=== PATIENT | female | born 1940 | race Caucasian/White ===

== ENCOUNTER 2016-08-18 23:49 | Observation (INO) ==
[2016-08-19] MEDS ORDERED: SODIUM CHLORIDE 0.9% 1,000 ML IV STA (00:25)
[2016-08-19] MEDS ORDERED: ONDANSETRON 4 MG/2 ML VIAL IV STA (00:25)
--- NOTE | 2016-08-19 00:25 | Emergency Department Note ---
Shorty Acuna Hilary, am scribing for, and in the presence of, Walter Jurado MD 00: 22. Rhiannon Acuna Andrew, MD, personally performed the services described in this documentation, ascribed by Nancy Oro in my presence, and it is both accurate and complete . Arrival - Arrival Chief Complaint: Nausea/Vomiting/Diarrhea Stated Complaint: N/V ED Nursing Triage Note: Patient to ED via EMS with c/o N/V that started around 2230. Patient had a small amount of bright red blood noted in her emesis [employer]. Patient has history of GI bleed. Mode of Arrival: Stretcher Limitations: No Limitations Source: Patient, RN Notes Reviewed - History of Present Illness HPI Narrative: Pt is a 76 y/o white female brought into the ED via EMS with c/o N/V that started around 2230. Pt states she started to vomit bright red blood this evening. She confirms abdominal pain and bloody vomiting. Pt states that she has a history of Ulcers and had 2 tumors taken out of her stomach recently (a few months ago) per Dr Machado at [facility]. She says that with those ulcers she had blood in her stool but not bloody vomit. Pt also states that she has been dealing with sinus drainage for several days. No other complaints or problems stated in the ED. Onset (ago): hour(s) Consistency: constant Severity: moderate Severity scale (1-10): 3 Allergies/Adverse Reactions: Allergies Allergy/AdvReac Type Severity Reaction Status Date / Time acetaminophen Allergy Unknown/Unable Verified 08/19/16 00:13 [From Darvocet-N] to obtain amlodipine Allergy Unknown/Unable Verified 08/19/16 00:13 to obtain Ethanol Allergy Unknown/Unable Verified 08/19/16 00:13 to obtain hydrochlorothiazide Allergy Unknown/Unable Verified 08/19/16 00:13 to obtain lisinopril Allergy Unknown/Unable Verified 08/19/16 00:13 to obtain losartan Allergy Unknown/Unable Verified 08/19/16 00:13 to obtain methocarbamol [From Robaxin] Allergy Unknown/Unable Verified 08/19/16 00:13 to obtain NSAIDS (Non-Steroidal Allergy Unknown/Unable Verified 08/19/16 00:13 Anti-Inflamma to obtain propoxyphene Allergy Unknown/Unable Verified 08/19/16 00:13 [From Danny] to obtain Sulfa (Sulfonamide Allergy Unknown/Unable Verified 08/19/16 00:13 Antibiotics) to obtain Tetracycline Allergy Unknown/Unable Verified 08/19/16 00:13 to obtain steriods Allergy Unknown/Unable Uncoded 08/19/16 00:13 to obtain Home Medications: Home Medications Medication Instructions Recorded Confirmed Type Acetaminophen Tab [Tylenol Tab] 325 mg PO Q4H PRN 08/19/16 08/19/16 History Cetirizine Tab [ZyrTEC Tab] 10 mg PO DAILY 08/19/16 08/19/16 History Cholecalciferol (Vitamin D3) 2,000 unit PO DAILY 08/19/16 08/19/16 History [Vitamin D3] Colchicine [Colcrys] 0.6 mg PO BID 08/19/16 08/19/16 History Divalproex Sprinkle [Depakote 125 mg PO TID 08/19/16 08/19/16 History Sprinkle] Docusate Sodium 100 mg PO BID 08/19/16 08/19/16 History Ferrous Sulfate Tab [Feosol 325 mg PO BID 08/19/16 08/19/16 History Original Tab] Fluticasone/Salmeterol 250-50 1 puff INH BID 08/19/16 08/19/16 History [Advair 250-50] Furosemide Tab [Lasix Tab] 40 mg PO DIRECTED 08/19/16 08/19/16 History Guaifen/Dextromethorphan/PE 30 ml PO DIRECTED PRN 08/19/16 08/19/16 History [Robafen Cf Liquid] Hydrocodone/Acetaminophen [[place] 7.5 mg PO Q12HR 08/19/16 08/19/16 History 7.5-325 Tablet] Levothyroxine Tab [Synthroid Tab] 112 mcg PO DAILY 08/19/16 08/19/16 History Mag-Al 30 ml PO DIRECTED PRN 08/19/16 08/19/16 History Magnesium Hydroxide Susp [Milk of 30 ml PO BID 08/19/16 08/19/16 History Magnesia] Melatonin/Pyridoxine HCl (B6) 3 mg PO BEDTIME 08/19/16 08/19/16 History [Melatonin 3 mg Tablet] Mv-Mn/FA/Coq10/Lycopene/Lutein 1 each PO DAILY 08/19/16 08/19/16 History [Theragran-M Premier 50+ Caplet] OLANZapine TAB [ZyPREXA Tab] 5 mg PO DAILY 08/19/16 08/19/16 History [place]-3 Fatty Acids [[place]-3 Chew 1,000 mg PO DAILY 08/19/16 08/19/16 History Tab] Omeprazole [Prilosec] 20 mg PO BID 08/19/16 08/19/16 History Phenazopyridine HCl [Azo Urinary 97.5 mg PO TID PRN 08/19/16 08/19/16 History Pain Relief] Polyethylene Glycol Powder 17 gm PO DIRECTED 08/19/16 08/19/16 History [Miralax] Polyvinyl Alcohol [Liquitears] 1.4 % OP DIRECTED 08/19/16 08/19/16 History Potassium Chloride [Klor-Con 8] 8 meq PO DAILY 08/19/16 08/19/16 History Pravastatin Sodium 10 mg PO DAILY 08/19/16 08/19/16 History Prochlorperazine Tab [Compazine 5 mg PO DIRECTED PRN 08/19/16 08/19/16 History Tab] Pyridoxine HCl (Vitamin B6) 100 mg PO DAILY 08/19/16 08/19/16 History [Vitamin B-6] Temazepam [Restoril] 7.5 mg PO BEDTIME 08/19/16 08/19/16 History Tolterodine LA [Detrol LA] 4 mg PO DAILY 08/19/16 08/19/16 History cloNIDine HCl [Clonidine HCl] 0.1 mg PO DAILY 08/19/16 08/19/16 History diphenhydrAMINE CAP [Benadryl Cap] 25 mg PO Q12H PRN 08/19/16 08/19/16 History hydrALAZINE TAB [Apresoline Tab] 25 mg PO BID 08/19/16 08/19/16 History traZODone [Desyrel] 25 mg PO BEDTIME 08/19/16 08/19/16 History Review of System - Review of System 12 point system: reviewed and no additional remarkable complaints except as stated - Review of System Constitutional: Absent: fever Gastrointestinal: Present: as per HPI, abdominal pain, nausea, vomiting, hematemesis (bright red, just blood). Absent: hematochezia Medical,Surgical,& Family Hx - Medical History Cardio: History of: Hypertension Psychological: History of: Depression Endocrine: History of: Dyslipidemia, Thyroid Disorder Rheumatology: History of;: Gout Respiratory: History of: COPD Gastrointestinal: History of: GERD - Social History Smoking Status: Never smoker Frequency of Alcohol Use: None Type of Drug Use: None Exam Vital Signs: Vital Signs Temperature 98.3 F 08/18/16 23:50 Pulse Rate 74 08/19/16 03:49 Respiratory Rate 16 08/19/16 03:49 Blood Pressure 172/98 08/19/16 03:49 O2 Sat by Pulse Oximetry 95 08/19/16 03:49 - General General appearance: alert, in no apparent distress - Head Head exam: Present: atraumatic, normocephalic - Eye Eye exam: Present: normal appearance, PERRL, EOMI. Absent: other (pale conjuctiva) - ENT ENT exam: Present: normal exam, mucous membranes moist, TM's normal bilaterally. Absent: mucous membranes dry - Neck Neck exam: Present: full ROM, trachea midline. Absent: tenderness - Chest Chest inspection: Present: symmetric chest wall rise. Absent: tenderness - Respiratory Respiratory exam: Present: normal lung sounds bilaterally. Absent: respiratory distress - Cardiovascular Cardiovascular exam: Present: regular rate, normal rhythm, normal heart sounds. Absent: murmur, rubs, gallop - Abdominal Exam Abdominal exam: Present: soft ( ), tenderness (LUQ, LLQ), normal bowel sounds. Absent: distention - Rectal Exam Rectal exam: Present: heme (-) stool (Fecal Cult. ). Absent: black stool (dark green, no evidence of melena) - Extremities Exam Extremities exam: Present: full ROM. Absent: tenderness, pedal edema - Back Exam Back exam: Present: full ROM. Absent: tenderness - Neurological Exam Neurological exam: Present: alert, oriented X3, CN II-XII intact. Absent: motor sensory deficit - Psychiatric Psychiatric exam: Present: normal affect, normal mood - Skin Skin exam: Present: warm, dry, intact, normal color. Absent: rash Course Course Narrative: Labs unremarkable. Patient with concerning story with hematemesis and prior history of PUD. Patient discussed with hospitalist and they plan to admit for serial H&H's. Results - Labs CBC & BMP: 08/19/16 05:12 08/19/16 00:06 Lab Results: I have reviewed the patients labs Labs: Laboratory Tests 08/19/16 08/19/16 00:06 00:06 WBC 10.6 RBC 5.45 Hgb 14.9 Hct 44.2 MCV 81.1 L Plt Count 177 Lymph % (Auto) 15.2 L Neut # (Auto) 7.9 H [place] # (Auto) 0.9 H Sodium 141 Potassium 3.8 Chloride 108 H Carbon Dioxide 25 BUN 23 H Creatinine 1.60 H Glucose 124 H Total Protein 6.6 Disposition Clinical Impression: Nausea and vomiting, Hematemesis Case discussed with: patient Disposition: Still a Patient Condition: Stable
[2016-08-19] MEDS ORDERED: ONDANSETRON 4 MG/2 ML VIAL ONE (00:38)
[2016-08-19 00:47] LABS: Basophils % 0.4 % (0.0-0.8); Eosinophils # 0.1 10*3/uL (0.0-0.87); Eosinophils % 1.2 % (0.00-10.9); Hematocrit 44.2 VOL% (35.7-47.0); Hemoglobin 14.9 GM/DL (12.0-16.0); Immature Granulocytes % 1.3 %; Immature Granulocytes Absolute 0.14 #; Lymphocytes # 1.6 10*3/uL (1.4-4.0); Lymphocytes % 15.2 % (21.3-54.2); Mean Corpuscular HGB Conc 33.7 GM/DL (32-36); Mean Corpuscular Hemoglobin 27 PG (27-34); Mean Corpuscular Volume 81.1 FL (87-102); Mean Platelet Volume 10.4 FL (9.6-12.0); Monocytes # 0.9 10*3/uL (0.11-0.8); Monocytes % 8.1 % (1.7-12.7); Neutrophils # 7.9 10*3/uL (1.4-7.4); Neutrophils % 73.8 % (38.7-73.9); Platelet Count 177 T/CUMM (130-400); Red Blood Count 5.45 MC/CUMM (3.8-5.5); Red Cell Distribution Width 15.5 % (9.3-17.3); White Blood Count 10.6 T/CUMM (4-12)
[2016-08-19 00:58] LABS: Alanine Aminotransferase 31 U/L (13-56); Albumin 3.7 G/DL (3.4-5.0); Alkaline Phosphatase 72 U/L (45-117); Aspartate Amino Transferase 17 U/L (0-37); Bilirubin,Total < 0.39 MG/DL (0.2-1.0); Blood Urea Nitrogen 23 MG/DL (7-18); Calcium 9.6 MG/DL (8.5-10.1); Glucose 124 MG/DL (74-106); Osmolality,Calculated 285.3 MOS/KG (273-304); Potassium 3.8 MMOL/L (3.5-5.1); Sodium 141 MMOL/L (136-145); Total Protein 6.6 G/DL (6.4-8.3)
[2016-08-19] MEDS ORDERED: PANTOPRAZOLE 40 MG VIAL IV STA (03:05)
[2016-08-19] MEDS ORDERED: ONDANSETRON 4 MG/2 ML VIAL IV PRN (03:10)
[2016-08-19] MEDS ORDERED: PANTOPRAZOLE 40 MG VIAL IV ONE (03:14)
[2016-08-19] MEDS ORDERED: hydrALAZINE 20 MG/1 ML VIAL IV STA (03:21)
[2016-08-19] MEDS ORDERED: hydrALAZINE 20 MG/1 ML VIAL ONE (03:28)
[2016-08-19] MEDS ORDERED: SODIUM CHLORIDE 0.9% 1,000 ML IV SCH (03:30)
--- NOTE | 2016-08-19 03:41 | Hospitalist History & Physical ---
Assessment and Plan - Time spent with patient Time spent with patient: Less than 30 minutes (1) GI bleed Status: Acute Assessment and plan: Patient's history is suspicious for GI bleed. No evidence of that at this time, however, given the proximity between onset and arrival in the ED, lab work may have been drawn too soon to show evidence of bleed. Will admit for observation, trend H&H, give IV fluids, hold all NSAIDS and ASA etc, start PPI therapy and antiemetics. Current Visit: Yes (2) Hypertension Status: Acute Assessment and plan: Patient notes an extensive history of hypertension which sometimes requires the uses of multiple antihypertensives to control. Home meds will be reviewed and reconciled once confirmed. Hydralazine PRN. Current Visit: Yes (3) Diabetes mellitus Status: Acute Assessment and plan: Accu-cheks ACHS. Sliding scale insulin per protocol. Current Visit: Yes (4) CORNEL (acute kidney injury) Status: Acute Assessment and plan: Creatinine 1.6 on admission. Unsure what patient's baseline is. Will hydrate with gentle IV fluids. Recheck chemistry panel. Current Visit: Yes History of Present Illness Chief complaint: hematemesis History of present illness: Ms. Phillips is a 76 year old white female [facility] resident with a past medical history significant for hypertension, thyroid carcinoma, dyslipidemia, COPD, GERD, and gout who presents via EMS with complaints of hematemesis which onset at approx 2230 last night. The patient is alert and oriented to person and place and appears to be in no acute distress at the time of the exam. She reports that she has been feeling sick for a few days but attributed it to sinus congestion until she had 2 episodes of hematemesis last night. EMS was called and the patient was given an antiemetic en route to the hospital. She reports that the vomiting has since resolved. On exam, she reports that she does have an extensive GI history including diverticulosis, partial colectomy, GI bleeds and, most recently, removal of intestinal tumors a few months ago. The patient reports that she is normally seen by GI specialists at [facility] but came to [facility] because "this is the hospital that is listed on her record". Apparently, the patient's daughter works/worked her at some point. I am not able to produce any records that confirm the patient has been seen by any [facility] physicians. Patient is resting comfortably in bed, though she is hypertensive. Her FOBT was heme negative. H&H are stable at 14.9 and 44.2. BUN 23, creatinine 1.6, serum glucose 124. She confirms headache, hematemesis, epigastric abdominal pain, sore throat, dizziness, mild edema. She denies chest pain, SOB, bleeding per rectum, syncopal episodes, palpitations. This case has been discussed with both Dr. Jurado, ER physician, and Dr. Ro, admitting physician, and the patient will be admitted for observation and further treatment. She is a full code. Home meds have been reviewed. Allergies Allergy/AdvReac Type Severity Reaction Status Date / Time acetaminophen Allergy Unknown/Unable Verified 08/19/16 00:13 [From Darvocet-N] to obtain amlodipine Allergy Unknown/Unable Verified 08/19/16 00:13 to obtain Ethanol Allergy Unknown/Unable Verified 08/19/16 00:13 to obtain hydrochlorothiazide Allergy Unknown/Unable Verified 08/19/16 00:13 to obtain lisinopril Allergy Unknown/Unable Verified 08/19/16 00:13 to obtain losartan Allergy Unknown/Unable Verified 08/19/16 00:13 to obtain methocarbamol [From Robaxin] Allergy Unknown/Unable Verified 08/19/16 00:13 to obtain NSAIDS (Non-Steroidal Allergy Unknown/Unable Verified 08/19/16 00:13 Anti-Inflamma to obtain propoxyphene Allergy Unknown/Unable Verified 08/19/16 00:13 [From Darvocet-N] to obtain Sulfa (Sulfonamide Allergy Unknown/Unable Verified 08/19/16 00:13 Antibiotics) to obtain Tetracycline Allergy Unknown/Unable Verified 08/19/16 00:13 to obtain steriods Allergy Unknown/Unable Uncoded 08/19/16 00:13 to obtain Medical,Surgical,& Family Hx - Medical History Cardio: History of: Hypertension Psychological: History of: Depression Endocrine: History of: Dyslipidemia, Thyroid Disorder Rheumatology: History of;: Gout Respiratory: History of: COPD Gastrointestinal: History of: GERD - Surgical History HEENT Surgeries: Surgical HX of: Thyroid Surgery Abdominal Surgeries: Surgical HX of: Abdominal Surgery (partial colectomy), Appendectomy, Cholecystectomy, Colonoscopy, EGD - Family History Family History: Reports;: Family Diabetes, Family Heart Disease, Family Hypertension - Social History Smoking Status: Former smoker (patient states she smoked for 15 years between age 34 and 49) Have you smoked in the last 12 months: No Frequency of Alcohol Use: None Type of Drug Use: None Marital Status: Single Lives With:: half-way Functional capacity: uses cane/walker 12 point system: reviewed and no additional remarkable complaints except as stated Exam - Constitutional Vitals: Period Temp Pulse Resp BP Sys/Rudolph Pulse Ox Last 24 Hr 98.3 F-98.3 F 72-93 16-22 155-226/85-130 94-98 Exam: General appearance: normal weight, no acute distress - Head Head exam: Present: normocephalic, atraumatic - Eye Eye exam: Present: EOMI. Absent: conjunctival injection, nystagmus Pupils: Present: DINA, normal accommodation - ENT ENT exam: Present: normal exam, normal external ear exam - Neck Neck exam: Present: normal inspection. Absent: lymphadenopathy, tenderness, thyromegaly - Respiratory Respiratory exam: Present: clear to auscultation bilaterally. Absent: rales, rhonchi, wheezes - Cardiovascular Cardiovascular exam: Present: regular rate and rhythm. Absent: carotid bruit, gallop, rubs - GI/Abdominal GI/Abdominal exam: Present: normal bowel sounds. Absent: ascites, distended, mass - Extremities Exam Extremities exam: Present: normal inspection, normal capillary refill. Absent: edema - Back Exam Back exam: Absent: CVA tenderness (L), CVA tenderness (R) - Neurological Exam Neurological exam: Present: alert, oriented X3, CN II-XII intact, reflexes normal - Psychiatric Psychiatric exam: Present: normal affect, normal mood - Skin Skin exam: Present: normal color, warm, dry Results - Labs CBC & BMP: 08/19/16 00:06 08/19/16 00:06 Lab Results: I have reviewed the past 24 hour labs
[2016-08-19] MEDS ORDERED: GLUCAGON 1 MG VIAL IM PRN (04:10)
[2016-08-19] MEDS ORDERED: DEXTROSE 50% 25 GM/50 ML VIAL IV PRN (04:10)
[2016-08-19 05:59] LABS: Basophils % 0.5 % (0.0-0.8); Eosinophils # 0.1 10*3/uL (0.0-0.87); Hematocrit 42.5 VOL% (35.7-47.0); Hemoglobin 14.1 GM/DL (12.0-16.0); Immature Granulocytes % 0.8 %; Immature Granulocytes Absolute 0.07 #; Lymphocytes # 1.7 10*3/uL (1.4-4.0); Lymphocytes % 20.1 % (21.3-54.2); Mean Corpuscular HGB Conc 33.2 GM/DL (32-36); Mean Corpuscular Hemoglobin 27 PG (27-34); Mean Corpuscular Volume 81.4 FL (87-102); Mean Platelet Volume 10.7 FL (9.6-12.0); Monocytes # 0.8 10*3/uL (0.11-0.8); Monocytes % 9.1 % (1.7-12.7); Neutrophils # 5.7 10*3/uL (1.4-7.4); Neutrophils % 68.5 % (38.7-73.9); Platelet Count 191 T/CUMM (130-400); Red Blood Count 5.22 MC/CUMM (3.8-5.5); Red Cell Distribution Width 15.4 % (9.3-17.3); White Blood Count 8.3 T/CUMM (4-12)
[2016-08-19 06:21] LABS: PT Patient Result 10.3 SECS
[2016-08-19] MEDS ORDERED: PROCHLORPERAZINE 5 MG TABLET PO PRN (06:21)
[2016-08-19] MEDS ORDERED: GUAIFENESIN PO PRN (06:21)
[2016-08-19] MEDS ORDERED: PHENYLEPHRINE PO PRN (06:21)
[2016-08-19] MEDS ORDERED: ACETAMINOPHEN 325 MG TABLET PO PRN (06:21)
[2016-08-19] MEDS ORDERED: DEXTROMETHORPHAN PO PRN (06:21)
[2016-08-19] MEDS ORDERED: diphenhydrAMINE CAP 25 MG CAPSULE PO PRN (06:21)
[2016-08-19 06:49] LABS: Calcium 9.2 MG/DL (8.5-10.1); Osmolality,Calculated 296.4 MOS/KG (273-304); Potassium 4.2 MMOL/L (3.5-5.1)
[2016-08-19] MEDS ORDERED: PHENAZOPYRIDINE 95 MG TABLET PO PRN (07:30)
[2016-08-19] MEDS ORDERED: ALUMINUM/MAGNES/SIMETH MAX STR 30 ML UDCUP PO PRN (07:30)
--- NOTE | 2016-08-19 07:54 | Event Note ---
Patient has been seen and examined. H&P noted. Patient's having no current nausea or vomiting at this time. There is been no evidence of bleeding. H&H has remained stable. We will advance her diet and continue serial H&H's. GI has been consulted, however there is no evidence of bleeding at this time and hopefully we can initiate discharge for the next 24 hours if all remains stable.
[2016-08-19] MEDS ORDERED: hydrALAZINE 25 MG TABLET PO SCH ×2 (09:00)
[2016-08-19] MEDS ORDERED: cloNIDine 0.1 MG TABLET PO SCH (09:00)
[2016-08-19] MEDS ORDERED: NON-FORMULARY MEDICATION (Omeprazole [Prilosec] 20 MG) PO SCH (09:00)
[2016-08-19] MEDS: INSULIN LISPRO 100 UNIT/ML SUBCUT SCH ×4 (09:36→22:33)
[2016-08-19] MEDS: FLUTICASONE/SALMETEROL 250-50 DISKUS 14 DOSE INH SCH ×2 (10:01→22:33)
[2016-08-19] MEDS: POTASSIUM CHLORIDE 8 MEQ CAPSULE PO SCH (10:01)
[2016-08-19] MEDS: PANTOPRAZOLE 40 MG TABLET PO SCH (10:01)
[2016-08-19] MEDS: LEVOTHYROXINE 112 MCG TABLET PO SCH (10:01)
[2016-08-19] MEDS: TOLTERODINE LA 4 MG CAPSULE PO SCH (10:01)
[2016-08-19] MEDS: CHOLECALCIFEROL 1,000 UNIT TABLET PO SCH (10:02)
[2016-08-19] MEDS: OLANZapine 5 MG TABLET PO SCH (10:02)
[2016-08-19] MEDS: DIVALPROEX SPRINKLE 125 MG CAPSULE PO SCH ×3 (10:02→22:32)
[2016-08-19] MEDS: POLYVINYL ALCOHOL 1.4% OPH SOLN 15 ML BOTTLE BOTH EYES SCH (10:02)
[2016-08-19] MEDS: FERROUS SULFATE 325 MG TABLET PO SCH ×2 (10:03→22:32)
[2016-08-19] MEDS: CETIRIZINE 10 MG TABLET PO SCH (10:03)
[2016-08-19] MEDS: MULTIVITAMIN (CENTRUM) TABLET PO SCH (10:03)
[2016-08-19] MEDS: cloNIDine 0.1 MG TABLET PO SCH ×2 (10:03→22:33)
[2016-08-19] MEDS: PRAVASTATIN 20 MG TABLET PO SCH (10:04)
[2016-08-19] MEDS: MAGNESIUM HYDROXIDE SUSP 30 ML UDCUP PO SCH ×3 (10:04→22:34)
[2016-08-19] MEDS: PYRIDOXINE 100 MG TABLET PO SCH (10:04)
[2016-08-19] MEDS: OMEGA 3 ACID ETHYL ESTERS 1 GM CAPSULE PO SCH (10:04)
[2016-08-19] MEDS: DOCUSATE SODIUM 100 MG CAPSULE PO SCH ×2 (10:04→22:32)
[2016-08-19 10:41] LABS: Hematocrit 42.2 VOL% (35.7-47.0); Hemoglobin 14.1 GM/DL (12.0-16.0)
--- NOTE | 2016-08-19 11:32 | Gastrointestinal Consult Note ---
Assessment and Plan (1) GI bleed Status: Acute Assessment and plan: 08/19 acute upper GI bleed which appears stable. History suggests possible Annika-Carey tear. Would continue on liquid diet for now. Plan EGD tomorrow morning to clarify bleeding source and could probably discharge tomorrow if no high bleeding risk lesion found. Continue empiric PPI therapy. Current Visit: Yes History of Present Illness Chief complaint: Hematemesis History of present illness: Ms. Phillips is a 76 year old female who presented to the emergency room with complaint of nausea and vomiting. She had 2 episodes of bright red hematemesis yesterday. Presentation, patient was hemodynamically normal. She had a normal- appearing bowel movement early yesterday with none since. She denies recent melena. She had some mild epigastric discomfort with this. Patient's hemoglobin has remained stable in 14 range. She had EGD within the last month or 2 at [facility] with what sounds like gastric polyps removed there which were benign. We do not have those records or pathology to review but have requested these. Patient denies recent weight loss. She denies taking [id number] nonsteroidal medications. Home Medications Medication Instructions Recorded Confirmed Type Acetaminophen Tab [Tylenol Tab] 325 mg PO Q4H PRN 08/19/16 08/19/16 History Cetirizine Tab [ZyrTEC Tab] 10 mg PO DAILY 08/19/16 08/19/16 History Cholecalciferol (Vitamin D3) 2,000 unit PO DAILY 08/19/16 08/19/16 History [Vitamin D3] Colchicine [Colcrys] 0.6 mg PO BID 08/19/16 08/19/16 History Divalproex Sprinkle [Depakote 125 mg PO TID 08/19/16 08/19/16 History Sprinkle] Docusate Sodium 100 mg PO BID 08/19/16 08/19/16 History Ferrous Sulfate Tab [Feosol 325 mg PO BID 08/19/16 08/19/16 History Original Tab] Fluticasone/Salmeterol 250-50 1 puff INH BID 08/19/16 08/19/16 History [Advair 250-50] Furosemide Tab [Lasix Tab] 40 mg PO DIRECTED 08/19/16 08/19/16 History Guaifen/Dextromethorphan/PE 30 ml PO DIRECTED PRN 08/19/16 08/19/16 History [Robafen Cf Liquid] Hydrocodone/Acetaminophen [[place] 7.5 mg PO Q12HR 08/19/16 08/19/16 History 7.5-325 Tablet] Levothyroxine Tab [Synthroid Tab] 112 mcg PO DAILY 08/19/16 08/19/16 History Mag-Al 30 ml PO DIRECTED PRN 08/19/16 08/19/16 History Magnesium Hydroxide Susp [Milk of 30 ml PO BID 08/19/16 08/19/16 History Magnesia] Melatonin/Pyridoxine HCl (B6) 3 mg PO BEDTIME 08/19/16 08/19/16 History [Melatonin 3 mg Tablet] Mv-Mn/FA/Coq10/Lycopene/Lutein 1 each PO DAILY 08/19/16 08/19/16 History [Theragran-M Premier 50+ Caplet] OLANZapine TAB [ZyPREXA Tab] 5 mg PO DAILY 08/19/16 08/19/16 History [place]-3 Fatty Acids [[place]-3 Chew 1,000 mg PO DAILY 08/19/16 08/19/16 History Tab] Omeprazole [Prilosec] 20 mg PO BID 08/19/16 08/19/16 History Phenazopyridine HCl [Azo Urinary 97.5 mg PO TID PRN 08/19/16 08/19/16 History Pain Relief] Polyethylene Glycol Powder 17 gm PO DIRECTED 08/19/16 08/19/16 History [Miralax] Polyvinyl Alcohol [Liquitears] 1.4 % OP DIRECTED 08/19/16 08/19/16 History Potassium Chloride [Klor-Con 8] 8 meq PO DAILY 08/19/16 08/19/16 History Pravastatin Sodium 10 mg PO DAILY 08/19/16 08/19/16 History Prochlorperazine Tab [Compazine 5 mg PO DIRECTED PRN 08/19/16 08/19/16 History Tab] Pyridoxine HCl (Vitamin B6) 100 mg PO DAILY 08/19/16 08/19/16 History [Vitamin B-6] Temazepam [Restoril] 7.5 mg PO BEDTIME 08/19/16 08/19/16 History Tolterodine LA [Detrol LA] 4 mg PO DAILY 08/19/16 08/19/16 History cloNIDine HCl [Clonidine HCl] 0.1 mg PO DAILY 08/19/16 08/19/16 History diphenhydrAMINE CAP [Benadryl Cap] 25 mg PO Q12H PRN 08/19/16 08/19/16 History hydrALAZINE TAB [Apresoline Tab] 25 mg PO BID 08/19/16 08/19/16 History traZODone [Desyrel] 25 mg PO BEDTIME 08/19/16 08/19/16 History Allergies Allergy/AdvReac Type Severity Reaction Status Date / Time acetaminophen Allergy Unknown/Unable Verified 08/19/16 00:13 [From [employer]] to obtain amlodipine Allergy Unknown/Unable Verified 08/19/16 00:13 to obtain Ethanol Allergy Unknown/Unable Verified 08/19/16 00:13 to obtain hydrochlorothiazide Allergy Unknown/Unable Verified 08/19/16 00:13 to obtain lisinopril Allergy Unknown/Unable Verified 08/19/16 00:13 to obtain losartan Allergy Unknown/Unable Verified 08/19/16 00:13 to obtain methocarbamol [From Robaxin] Allergy Unknown/Unable Verified 08/19/16 00:13 to obtain NSAIDS (Non-Steroidal Allergy Unknown/Unable Verified 08/19/16 00:13 Anti-Inflamma to obtain propoxyphene Allergy Unknown/Unable Verified 08/19/16 00:13 [From [employer]] to obtain Sulfa (Sulfonamide Allergy Unknown/Unable Verified 08/19/16 00:13 Antibiotics) to obtain Tetracycline Allergy Unknown/Unable Verified 08/19/16 00:13 to obtain steriods Allergy Unknown/Unable Uncoded 08/19/16 00:13 to obtain Medical,Surgical,& Family Hx - Medical History Cardio: History of: Hypertension Psychological: History of: Anxiety Disorders, Depression Neurology: History of: Peripheral Neuropathy Endocrine: History of: Dyslipidemia, Thyroid Disorder Rheumatology: History of;: Gout Respiratory: History of: COPD Gastrointestinal: History of: GERD - Surgical History HEENT Surgeries: Surgical HX of: Thyroid Surgery Abdominal Surgeries: Surgical HX of: Abdominal Surgery (partial colectomy), Appendectomy, Cholecystectomy, Colonoscopy, EGD Reproductive Surgeries: Surgical HX of;: Hysterectomy, Tubal Ligation - Family History Family History: Reports;: Family Diabetes, Family Heart Disease, Family Hypertension - Social History Smoking Status: Never smoker Frequency of Alcohol Use: None Type of Drug Use: None - Constitutional Constitutional: Present: weakness. Absent: chills, fever(s), weight loss - EENT Nose, mouth and throat: Absent: dysphagia, epistaxis - Cardiovascular Cardiovascular: Absent: chest pain with activity, orthopnea, PND - Respiratory Respiratory: Absent: hemoptysis, wheezing - Gastrointestinal Gastrointestinal: Present: as per HPI - Genitourinary Genitourinary: Absent: dysuria, flank pain, hematuria Exam - Constitutional Vitals: Period Temp Pulse Resp BP Sys/Rduolph Pulse Ox Last 24 Hr 98.1 F-98.5 F 72-93 16-22 155-226/85-130 94-98 General appearance: no acute distress - Head Head exam: Present: normocephalic, atraumatic - Eye Eye exam: Absent: scleral icterus - Respiratory Respiratory exam: Present: clear to auscultation bilaterally. Absent: wheezes - Cardiovascular Cardiovascular exam: Present: regular rate and rhythm. Absent: gallop, rubs - GI/Abdominal GI/Abdominal exam: Present: normal bowel sounds, soft. Absent: distended, organomegaly, tenderness - Extremities Exam Extremities exam: Absent: calf tenderness, edema - Neurological Exam Neurological exam: Present: alert, oriented X3, CN II-XII intact - Skin Skin exam: Present: warm, dry Results - Labs CBC & BMP: 08/19/16 10:33 08/19/16 05:12 Lab Results: I have reviewed the past 24 hour labs Quality Measures - Stroke Symptom Onset Unknown: No
[2016-08-19] MEDS ORDERED: hydrALAZINE 20 MG/1 ML VIAL IV PRN (12:34)
[2016-08-19 19:46] LABS: Hematocrit 38.8 VOL% (35.7-47.0); Hemoglobin 12.9 GM/DL (12.0-16.0)
[2016-08-19] MEDS ORDERED: MELATONIN 3 MG TABLET PO SCH (21:00)
[2016-08-19] MEDS ORDERED: traZODone 50 MG TABLET PO SCH (21:00)
[2016-08-19] MEDS ORDERED: TEMAZEPAM 7.5 MG CAPSULE PO SCH (21:00)
--- NOTE | 2016-08-20 08:32 | Hospitalist Progress Note ---
Assessment and Plan - Time spent with patient Time spent with patient: Less than 30 minutes (1) GI bleed Status: Acute Assessment and plan: Patient has history of hematemesis consistent with possible Annika-Carey tear. She has been on IV PPI and is scheduled for upper endoscopy by Dr. Botello today. H&H have been stable and hopefully she can be discharged back to [facility] later today. Current Visit: Yes (2) Hypertension Status: Chronic Assessment and plan: Blood pressure elevated yesterday requiring adjustment in her medical regimen. She is currently stable and fairly well-controlled. Current Visit: Yes Qualifiers: Hypertension type: essential hypertension Qualified Code(s): I10 - Essential (primary) hypertension (3) Diabetes mellitus Status: Chronic Assessment and plan: Blood sugars well controlled. Continue current regimen. Current Visit: Yes Qualifiers: Diabetes mellitus type: type 2 Hospitalist: Subjective Interval history: Patient without any further complaints. She has been tolerating her diet. There is been no further nausea vomiting, hematemesis, melena or hematochezia. Exam - Constitutional Vitals: Period Temp Pulse Resp BP Sys/Rudolph Pulse Ox Last 24 Hr 97.5 F-98.5 F 66-104 18-20 112-205/66-124 96-99 General appearance: no acute distress - Head Head exam: Present: normocephalic, atraumatic - Eye Eye exam: Present: EOMI Pupils: Present: DINA - ENT ENT exam: Present: normal exam - Neck Neck exam: Present: normal inspection - Respiratory Respiratory exam: Present: clear to auscultation bilaterally - Cardiovascular Cardiovascular exam: Present: regular rate and rhythm - GI/Abdominal GI/Abdominal exam: Present: normal bowel sounds, soft. Absent: tenderness - Extremities Exam Extremities exam: Absent: calf tenderness, edema - Back Exam Back exam: Present: normal inspection - Neurological Exam Neurological exam: Present: alert, oriented X3, CN II-XII intact. Absent: motor sensory deficit - Psychiatric Psychiatric exam: Present: normal affect, normal mood. Absent: agitated, anxious - Skin Skin exam: Present: warm, dry. Absent: rash Results - Labs CBC & BMP: 08/19/16 19:35 08/19/16 05:12 Lab Results: I have reviewed the past 24 hour labs Quality Measures - Stroke Symptom Onset Unknown: No
[2016-08-20] MEDS: FLUTICASONE/SALMETEROL 250-50 DISKUS 14 DOSE INH SCH (08:47)
[2016-08-20] MEDS: INSULIN LISPRO 100 UNIT/ML SUBCUT SCH ×2 (08:47→13:41)
[2016-08-20] MEDS: CHOLECALCIFEROL 1,000 UNIT TABLET PO SCH (08:48)
[2016-08-20] MEDS: OLANZapine 5 MG TABLET PO SCH (08:48)
[2016-08-20] MEDS: PYRIDOXINE 100 MG TABLET PO SCH (08:48)
[2016-08-20] MEDS: CETIRIZINE 10 MG TABLET PO SCH (08:48)
[2016-08-20] MEDS: LEVOTHYROXINE 112 MCG TABLET PO SCH (08:49)
[2016-08-20] MEDS: PRAVASTATIN 20 MG TABLET PO SCH (08:49)
[2016-08-20] MEDS: POTASSIUM CHLORIDE 8 MEQ CAPSULE PO SCH (08:49)
[2016-08-20] MEDS: PANTOPRAZOLE 40 MG TABLET PO SCH (08:49)
[2016-08-20] MEDS: OMEGA 3 ACID ETHYL ESTERS 1 GM CAPSULE PO SCH (08:49)
[2016-08-20] MEDS: MAGNESIUM HYDROXIDE SUSP 30 ML UDCUP PO SCH (08:49)
[2016-08-20] MEDS: MULTIVITAMIN (CENTRUM) TABLET PO SCH (08:50)
[2016-08-20] MEDS: FERROUS SULFATE 325 MG TABLET PO SCH (08:50)
[2016-08-20] MEDS: TOLTERODINE LA 4 MG CAPSULE PO SCH (08:50)
[2016-08-20] MEDS: DIVALPROEX SPRINKLE 125 MG CAPSULE PO SCH (08:50)
[2016-08-20] MEDS: cloNIDine 0.1 MG TABLET PO SCH ×2 (08:50)
[2016-08-20] MEDS: POLYVINYL ALCOHOL 1.4% OPH SOLN 15 ML BOTTLE BOTH EYES SCH (08:50)
[2016-08-20] MEDS: DOCUSATE SODIUM 100 MG CAPSULE PO SCH (08:50)
[2016-08-20] MEDS ORDERED: FUROSEMIDE 40 MG TABLET PO SCH (09:00)
[2016-08-20] MEDS ORDERED: POLYETHYLENE GLYCOL POWDER 17 GM PACK PO SCH (09:00)
[2016-08-20] MEDS ORDERED: LIDOCAINE 2% 5 ML VIAL ONE (10:03)
[2016-08-20] MEDS ORDERED: PROPOFOL 200 MG/20 ML VIAL IV ONE (10:03)
--- NOTE | 2016-08-20 10:05 | History and Physical Update ---
History and Physical Update - History and Physical H&P was reviewed, the patient examined and there: are no changes in the patients condition since last H&P was completed. - Physical Exam Mental Status: alert and oriented Heart: regular rate and rhythm Lung: clear to auscultation Abdomen: within normal limits Vitals: within normal limits
--- NOTE | 2016-08-20 10:15 | Operative Note ---
Date of procedure: 08/20/16 Pre-op diagnosis: Hematemesis Procedure: Procedure: Esophagogastroduodenoscopy Brief clinical abstract: Patient is a 76-year-old female admitted after episodes of nausea/vomiting with hematemesis. She has had no further bleeding noted here. She has not required transfusion. No melena has been noted. Patient had EGD within the last few weeks at [facility] with reportedly 2 hyperplastic polyps removed there. Indication for procedure: Hematemesis Endoscopic findings:[After informed consent was obtained, the patient was placed in the left lateral decubitus position. The gastroscope was inserted in the upper esophagus under direct vision with no resistance encountered. Esophageal mucosa appeared normal with squamocolumnar junction sharply demarcated above a small hiatal hernia. The endoscope was advanced in the stomach which was carefully examined including retroflexed view of the cardia and fundus. There were 2 small approximately 5 mm hyperplastic appearing polyps in the gastric antrum. Over 1 of these, there were 2 endoscopic clips noted. A couple of small nonbleeding vascular malformations were noted in the proximal stomach. These were not coagulated. The pyloric channel, duodenal bulb, second and third portion of the duodenum appeared normal. The endoscope was withdrawn and patient appeared to tolerate the procedure well. Impression: #1 small hiatal hernia #2 nonbleeding gastric AVMs #3 small gastric antral polyps Recommendations: With no lesions noted to suggest significant further bleeding risk, advance diet. Could probably discharge today from GI standpoint if tolerates. Anesthesia: MAC Surgeon / Physician: Alfredo Botello Estimated blood loss: none Specimens: none sent Condition: stable Disposition: post procedure unit Results - Labs CBC & BMP: 08/19/16 19:35 08/19/16 05:12 Discharge Plan - Discharge Medications No Action Prochlorperazine Tab [Compazine Tab] 5 mg PO DIRECTED PRN PRN Reason: Nausea Cholecalciferol (Vitamin D3) [Vitamin D3] 2,000 unit PO DAILY Omeprazole [Prilosec] 20 mg PO BID Cetirizine Tab [ZyrTEC Tab] 10 mg PO DAILY Temazepam [Restoril] 7.5 mg PO BEDTIME Colchicine [Colcrys] 0.6 mg PO BID hydrALAZINE TAB [Apresoline Tab] 25 mg PO BID OLANZapine TAB [ZyPREXA Tab] 5 mg PO DAILY Hydrocodone/Acetaminophen [Angel[place] 7.5-325 Tablet] 7.5 mg PO Q12HR Mag-Al 30 ml PO DIRECTED PRN PRN Reason: Indigestion Mv-Mn/FA/Coq10/Lycopene/Lutein [Theragran-M Premier 50+ Caplet] 1 each PO DAILY Acetaminophen Tab [Tylenol Tab] 325 mg PO Q4H PRN PRN Reason: Pain Ferrous Sulfate Tab [Feosol Original Tab] 325 mg PO BID traZODone [Desyrel] 25 mg PO BEDTIME Guaifen/Dextromethorphan/PE [Robafen Cf Liquid] 30 ml PO DIRECTED PRN PRN Reason: cough Polyvinyl Alcohol [Liquitears] 1.4 % OP DIRECTED Pravastatin Sodium 10 mg PO DAILY Melatonin/Pyridoxine HCl (B6) [Melatonin 3 mg Tablet] 3 mg PO BEDTIME Docusate Sodium 100 mg PO BID Potassium Chloride [Klor-Con 8] 8 meq PO DAILY Stella-3 Fatty Acids [Stella-3 Chew Tab] 1,000 mg PO DAILY cloNIDine HCl [Clonidine HCl] 0.1 mg PO DAILY Polyethylene Glycol Powder [Miralax] 17 gm PO DIRECTED Levothyroxine Tab [Synthroid Tab] 112 mcg PO DAILY Fluticasone/Salmeterol 250-50 [Advair 250-50] 1 puff INH BID Divalproex Sprinkle [Depakote Sprinkle] 125 mg PO TID Furosemide Tab [Lasix Tab] 40 mg PO DIRECTED diphenhydrAMINE CAP [Benadryl Cap] 25 mg PO Q12H PRN PRN Reason: Itching Magnesium Hydroxide Susp [Milk of Magnesia] 30 ml PO BID Phenazopyridine HCl [Azo Urinary Pain Relief] 97.5 mg PO TID PRN PRN Reason: Urinary Pain Pyridoxine HCl (Vitamin B6) [Vitamin B-6] 100 mg PO DAILY Tolterodine LA [Detrol LA] 4 mg PO DAILY - Follow Up or Referral - Forms/Instructions
--- NOTE | 2016-08-20 10:23 | Anesthesia Post-Op ---
Anesthesia Post OP - Post Ansesthetic Evaluation Patient seen in post op: Yes Resp: within normal limits CV: within normal limits Mental: within normal limits Temp: within normal limits [id number]: within normal limits Nausea and Vomiting: within normal limits Pain: within normal limits
--- NOTE | 2016-08-20 10:25 | Discharge Summary ---
Hospital Course - Hospital Course Hospital Course: 76-year-old white female resident of [facility] who had some nausea with vomiting with red blood approximately 1030 on the night prior to admission. She was evaluated in the emergency room and because of her history is felt that should require further observation. Patient was admitted to the hospitalist service and serial hemoglobin and hematocrit revealed no significant drop. She was noted to be quite hypertensive in her antihypertensive regimen had to be adjusted with good result. There was no evidence of further bleeding however she was seen by gastroenterology. She underwent esophagogastroduodenoscopy which noted a small hiatal hernia, nonbleeding gastric AVMs, small gastric antral polyps. There were no lesions to suggest significant further bleeding risk and her diet was advanced and tolerated and she will be subsequently discharged back to [facility] for further care. - Time spent with patient Time with patient DS: Less than 30 minutes Diagnosis - Discharge Diagnosis (1) GI bleed Status: Acute (2) Hypertension Status: Chronic (3) Diabetes mellitus Status: Chronic Discharge Plan - Discharge Data Disposition: Disch/Xfer to Snf Condition at Discharge: Stable Discharge Diet: advance to your usual diet Activity: resume usual activities as tolerated Hygiene: no restrictions Contact your physician if you experience:: fever over 101, Shortness of breath, Bleeding - Discharge Medications New hydrALAZINE TAB [Apresoline Tab] 50 mg PO TID tablet cloNIDine TAB [Catapres Tab] 0.1 mg PO BID tablet Continue Prochlorperazine Tab [Compazine Tab] 5 mg PO DIRECTED PRN PRN Reason: Nausea Cholecalciferol (Vitamin D3) [Vitamin D3] 2,000 unit PO DAILY Omeprazole [Prilosec] 20 mg PO BID Cetirizine Tab [ZyrTEC Tab] 10 mg PO DAILY Temazepam [Restoril] 7.5 mg PO BEDTIME Colchicine [Colcrys] 0.6 mg PO BID OLANZapine TAB [ZyPREXA Tab] 5 mg PO DAILY Hydrocodone/Acetaminophen [[place] 7.5-325 Tablet] 7.5 mg PO Q12HR Mag-Al 30 ml PO DIRECTED PRN PRN Reason: Indigestion Mv-Mn/FA/Coq10/Lycopene/Lutein [Theragran-M Premier 50+ Caplet] 1 each PO DAILY Acetaminophen Tab [Tylenol Tab] 325 mg PO Q4H PRN PRN Reason: Pain Ferrous Sulfate Tab [Feosol Original Tab] 325 mg PO BID traZODone [Desyrel] 25 mg PO BEDTIME Guaifen/Dextromethorphan/PE [Robafen Cf Liquid] 30 ml PO DIRECTED PRN PRN Reason: cough Polyvinyl Alcohol [Liquitears] 1.4 % OP DIRECTED Pravastatin Sodium 10 mg PO DAILY Melatonin/Pyridoxine HCl (B6) [Melatonin 3 mg Tablet] 3 mg PO BEDTIME Docusate Sodium 100 mg PO BID Potassium Chloride [Klor-Con 8] 8 meq PO DAILY [place]-3 Fatty Acids [[place]-3 Chew Tab] 1,000 mg PO DAILY Polyethylene Glycol Powder [Miralax] 17 gm PO DIRECTED Levothyroxine Tab [Synthroid Tab] 112 mcg PO DAILY Fluticasone/Salmeterol 250-50 [Advair 250-50] 1 puff INH BID Divalproex Sprinkle [Depakote Sprinkle] 125 mg PO TID Furosemide Tab [Lasix Tab] 40 mg PO DIRECTED diphenhydrAMINE CAP [Benadryl Cap] 25 mg PO Q12H PRN PRN Reason: Itching Magnesium Hydroxide Susp [Milk of Magnesia] 30 ml PO BID Phenazopyridine HCl [Azo Urinary Pain Relief] 97.5 mg PO TID PRN PRN Reason: Urinary Pain Pyridoxine HCl (Vitamin B6) [Vitamin B-6] 100 mg PO DAILY Tolterodine LA [Detrol LA] 4 mg PO DAILY Discontinued hydrALAZINE TAB [Apresoline Tab] 25 mg PO BID cloNIDine HCl [Clonidine HCl] 0.1 mg PO DAILY - Follow Up or Referral Follow Up: PCP, clinic [Other] - 3 Days - Forms/Instructions Additional Discharge Instructions: Discharge to [facility] after lunch Exam - Constitutional Vitals: Period Temp Pulse Resp BP Sys/Rudolph Pulse Ox Last 24 Hr 97.3 F-98.5 F 63-104 16-20 112-228/66-124 91-100 General appearance: no acute distress - Head Head exam: Present: normocephalic, atraumatic - Eye Eye exam: Present: EOMI Pupils: Present: DINA - ENT ENT exam: Present: normal exam - Neck Neck exam: Present: normal inspection - Respiratory Respiratory exam: Present: clear to auscultation bilaterally - Cardiovascular Cardiovascular exam: Present: regular rate and rhythm - GI/Abdominal GI/Abdominal exam: Present: normal bowel sounds, soft. Absent: tenderness, rebound - Extremities Exam Extremities exam: Absent: calf tenderness, edema - Back Exam Back exam: Present: normal inspection - Neurological Exam Neurological exam: Present: alert, oriented X3, CN II-XII intact. Absent: motor sensory deficit - Psychiatric Psychiatric exam: Present: normal affect, normal mood. Absent: agitated, anxious - Skin Skin exam: Present: warm, dry. Absent: rash Discharge Results Procedures and tests throughout hospitalization: Pending Orders 08/19/16 03:10 Occult Blood, Stool Routine Labs on day of discharge: Labs from last 24 hours 08/19/16 08/19/16 08/19/16 19:35 11:37 10:33 Hgb 12.9 14.1 Hct 38.8 42.2 POC Glucose 133 H DS: Provider Date of admission: 08/19/16 03:10 Primary care physician: . No PCP Attending physician on admission: Venu Ro MD Consults: 08/19/16 07:13 Consult to Dietitian [CONS] Routine Reason for Dietitian: Dietary Consult 08/19/16 07:47 Consult to Physician [CONS] Routine Comment: hx hemetemasis Consulting Provider: Alfredo Botello Person Notified: Aware Date Notified: 08/20/16 Time Notified: 09:06 Discharging clinician: Marta Berrios Expected date of discharge: 08/20/16
[2016-08-20 13:43] VITALS: BP 162/79
== END 2016-08-20 15:02 ==
LOC: EDBD → EDUNIT# → N.EDINP 23:49 → N.ED 23:49 → SUATTDRO 08-19 03:10 → N.5E 08-19 03:35
PROVIDERS: ADMIT Family Medicine; ATTEND Hospitalist

== ENCOUNTER 2017-08-19 15:39 | Inpatient (IN) ==
[2017-08-19] MEDS ORDERED: SODIUM CHLORIDE 0.9% 500 ML IV STA ×2 (16:51→18:20)
[2017-08-19 17:23] LABS: Basophils # 0.1 10*3/uL (0.0-0.2); Basophils % 0.2 % (0.0-0.8); Eosinophils # 0.2 10*3/uL (0.0-0.87); Eosinophils % 0.6 % (0.00-10.9); Hemoglobin 9.4 GM/DL (12.0-16.0); Immature Granulocytes Absolute 5.67 #; Lymphocytes # 2.3 10*3/uL (1.4-4.0); Lymphocytes % 9.9 % (21.3-54.2); Mean Corpuscular HGB Conc 32.4 GM/DL (32-36); Mean Corpuscular Hemoglobin 27 PG (27-34); Mean Corpuscular Volume 82.9 FL (87-102); Mean Platelet Volume 10.6 FL (9.6-12.0); Monocytes # 2.4 10*3/uL (0.11-0.8); Monocytes % 10.1 % (1.7-12.7); Neutrophils # 13.1 10*3/uL (1.4-7.4); Neutrophils % 55.2 % (38.7-73.9); Platelet Count 393 T/CUMM (130-400); Red Cell Distribution Width 17.2 % (9.3-17.3); White Blood Count 23.6 T/CUMM (4-12)
[2017-08-19] MEDS ORDERED: PIPERACILLIN/TAZOBACTAM 3,375 MG in SODIUM CHLORIDE 0.9% 100 ML IV STA (17:29)
[2017-08-19] MEDS ORDERED: cefTRIAXone 1,000 MG in SODIUM CHLORIDE 0.9% 100 ML IV STA (17:29)
[2017-08-19 17:47] LABS: Apearance,Urine Slightly Hazy (Clear); Bilirubin,Urine Negative (Negative); Blood, Urine Negative (Negative); Glucose,Urine (UA) Negative (Negative); Ketones,Urine Negative (Negative); Nitrite,Urine Positive (Negative); Protein,Urine Negative; RBC,Urine 1 /HPF (0-4); Urine Color Yellow (Yellow); Urine Specific Gravity 1.005 (1.001-1.035); Urine Urobilinogen < 2.0 EU/DL (0.2-1.0); WBC,Urine 126 /HPF (0-6)
[2017-08-19 17:48] LABS: Alanine Aminotransferase 12 U/L (13-56); Albumin 2.1 G/DL (3.4-5.0); Alkaline Phosphatase 57 U/L (45-117); Aspartate Amino Transferase 13 U/L (0-37); Bilirubin,Total < 0.39 MG/DL (0.2-1.0); Blood Urea Nitrogen 49 MG/DL (7-18); Calcium 8.4 MG/DL (8.5-10.1); Glucose 96 MG/DL (74-106); Osmolality,Calculated 280.2 MOS/KG (273-304); Potassium 4.4 MMOL/L (3.5-5.1); Sodium 134 MMOL/L (136-145); Total Protein 6.1 G/DL (6.4-8.3)
[2017-08-19] MEDS ORDERED: DEXTROSE 50% 25 GM/50 ML VIAL IV PRN (19:26)
[2017-08-19] MEDS ORDERED: GLUCAGON 1 MG VIAL IM PRN (19:26)
[2017-08-19 20:24] LABS: Band Neutrophils 1 % (0-10); Lymphocytes 12 % (20-55); Metamyelocytes 2 %; Myelocytes 3 %; Segmented Neutrophils 75 % (50-85); Total Cells Counted 100
[2017-08-19 20:25] LABS: Platelet Estimate Normal; Polychromasia Few
[2017-08-19] MEDS: ENOXAPARIN 30 MG/0.3 ML SYRINGE SUBCUT SCH (22:13)
[2017-08-19] MEDS: INSULIN REGULAR 100 UNIT/ML SUBCUT SCH (22:24)
[2017-08-19] MEDS: SODIUM CHLORIDE 0.9% 1,000 ML IV SCH (22:25)
[2017-08-19] MEDS: NITROFURANTOIN MACRO/MONO 100 MG CAPSULE PO SCH (23:43)
[2017-08-19] MEDS: traZODone 50 MG TABLET PO SCH (23:43)
[2017-08-19] MEDS: DIVALPROEX 250 MG TABLET PO SCH (23:43)
[2017-08-19] MEDS: FAMOTIDINE 20 MG TABLET PO SCH (23:43)
[2017-08-20 05:46] LABS: Basophils # 0.1 10*3/uL (0.0-0.2); Basophils % 0.2 % (0.0-0.8); Eosinophils # 0.1 10*3/uL (0.0-0.87); Eosinophils % 0.6 % (0.00-10.9); Hematocrit 29.1 VOL% (35.7-47.0); Hemoglobin 9.3 GM/DL (12.0-16.0); Immature Granulocytes % 22.5 %; Immature Granulocytes Absolute 4.71 #; Lymphocytes % 9.7 % (21.3-54.2); Mean Corpuscular Hemoglobin 27 PG (27-34); Mean Corpuscular Volume 83.6 FL (87-102); Mean Platelet Volume 10.7 FL (9.6-12.0); Monocytes # 2.1 10*3/uL (0.11-0.8); Monocytes % 10.2 % (1.7-12.7); Neutrophils # 11.9 10*3/uL (1.4-7.4); Neutrophils % 56.8 % (38.7-73.9); Platelet Count 389 T/CUMM (130-400); Red Blood Count 3.48 MC/CUMM (3.8-5.5); Red Cell Distribution Width 17.3 % (9.3-17.3); White Blood Count 20.9 T/CUMM (4-12)
[2017-08-20] MEDS: PIPERACILLIN/TAZOBACTAM 3,375 MG in SODIUM CHLORIDE 0.9% 100 ML IV SCH ×2 (05:49→17:01)
[2017-08-20] MEDS: LEVOTHYROXINE 137 MCG TABLET PO SCH (05:51)
[2017-08-20 06:07] LABS: Albumin 1.8 G/DL (3.4-5.0); Bilirubin,Total 0.4 MG/DL (0.2-1.0); Calcium 8.7 MG/DL (8.5-10.1); Osmolality,Calculated 286.5 MOS/KG (273-304); Total Protein 6.2 G/DL (6.4-8.3)
[2017-08-20 06:14] LABS: Band Neutrophils 9 % (0-10); Eosinophils 4 % (0-10); Hypochromasia 1+; Lymphocytes 7 % (20-55); Ovalocytes Slight; Platelet Estimate Adequate; Segmented Neutrophils 68 % (50-85); Total Cells Counted 100
[2017-08-20] MEDS: INSULIN REGULAR 100 UNIT/ML SUBCUT SCH ×4 (08:20→20:57)
[2017-08-20] MEDS ORDERED: Fluticasone/Vilanterol [Breo Ellipta 100-25 Mcg Inh] INH SCH (09:00)
[2017-08-20] MEDS: POLYETHYLENE GLYCOL POWDER 17 GM PACK PO SCH (09:33)
[2017-08-20] MEDS: FLUTICASONE 50 MCG NASAL SPRAY 16 GM BOTTLE BOTH NARES SCH (09:33)
[2017-08-20] MEDS: TOLTERODINE 2 MG TABLET PO SCH ×2 (09:33→20:54)
[2017-08-20] MEDS: CARVEDILOL 25 MG TABLET PO SCH ×2 (09:33→16:54)
[2017-08-20] MEDS: POLYVINYL ALCOHOL 1.4% OPH SOLN 15 ML BOTTLE BOTH EYES SCH ×2 (09:33→20:58)
[2017-08-20] MEDS: ASPIRIN EC 81 MG TABLET PO SCH (09:33)
[2017-08-20] MEDS: DIVALPROEX 250 MG TABLET PO SCH ×2 (09:33→20:53)
[2017-08-20] MEDS: CETIRIZINE 10 MG TABLET PO SCH (09:34)
[2017-08-20] MEDS: NITROFURANTOIN MACRO/MONO 100 MG CAPSULE PO SCH (09:34)
[2017-08-20] MEDS: OLANZapine 5 MG TABLET PO SCH (09:34)
[2017-08-20] MEDS: PRAVASTATIN 20 MG TABLET PO SCH (09:34)
[2017-08-20] MEDS: FAMOTIDINE 20 MG TABLET PO SCH ×2 (09:34→20:54)
[2017-08-20] MEDS: SODIUM CHLORIDE 0.9% 1,000 ML IV SCH ×2 (15:53)
[2017-08-20] MEDS: traZODone 50 MG TABLET PO SCH (20:57)
[2017-08-20] MEDS: ENOXAPARIN 30 MG/0.3 ML SYRINGE SUBCUT SCH (20:58)
[2017-08-21] MEDS: SODIUM CHLORIDE 0.9% 1,000 ML IV SCH ×3 (05:47→22:32)
[2017-08-21] MEDS: PIPERACILLIN/TAZOBACTAM 3,375 MG in SODIUM CHLORIDE 0.9% 100 ML IV SCH (05:54)
[2017-08-21] MEDS: LEVOTHYROXINE 137 MCG TABLET PO SCH (05:54)
[2017-08-21 07:12] LABS: Basophils % 0.3 % (0.0-0.8); Eosinophils # 0.1 10*3/uL (0.0-0.87); Eosinophils % 0.9 % (0.00-10.9); Hematocrit 29.1 VOL% (35.7-47.0); Hemoglobin 9.1 GM/DL (12.0-16.0); Immature Granulocytes % 17.9 %; Immature Granulocytes Absolute 2.46 #; Lymphocytes # 1.5 10*3/uL (1.4-4.0); Lymphocytes % 10.8 % (21.3-54.2); Mean Corpuscular HGB Conc 31.3 GM/DL (32-36); Mean Corpuscular Hemoglobin 26 PG (27-34); Mean Corpuscular Volume 83.9 FL (87-102); Mean Platelet Volume 10.2 FL (9.6-12.0); Monocytes # 1.3 10*3/uL (0.11-0.8); Monocytes % 9.5 % (1.7-12.7); Neutrophils # 8.3 10*3/uL (1.4-7.4); Neutrophils % 60.6 % (38.7-73.9); Platelet Count 358 T/CUMM (130-400); Red Blood Count 3.47 MC/CUMM (3.8-5.5); Red Cell Distribution Width 17.4 % (9.3-17.3); White Blood Count 13.8 T/CUMM (4-12)
[2017-08-21 07:42] LABS: Calcium 8.3 MG/DL (8.5-10.1); Osmolality,Calculated 291.8 MOS/KG (273-304); Potassium 4.2 MMOL/L (3.5-5.1)
[2017-08-21 08:04] LABS: Band Neutrophils 3 % (0-10); Eosinophils 1 % (0-10); Hypochromasia 2+; Lymphocytes 9 % (20-55); Microcytosis 2+; Myelocytes 1 %; Platelet Estimate Adequate; Segmented Neutrophils 77 % (50-85); Total Cells Counted 100
[2017-08-21] MEDS: INSULIN REGULAR 100 UNIT/ML SUBCUT SCH ×4 (09:25→21:03)
[2017-08-21] MEDS: FLUTICASONE 50 MCG NASAL SPRAY 16 GM BOTTLE BOTH NARES SCH (09:33)
[2017-08-21] MEDS: POLYETHYLENE GLYCOL POWDER 17 GM PACK PO SCH (09:33)
[2017-08-21] MEDS: POLYVINYL ALCOHOL 1.4% OPH SOLN 15 ML BOTTLE BOTH EYES SCH ×2 (09:33→21:03)
[2017-08-21] MEDS: TOLTERODINE 2 MG TABLET PO SCH ×2 (09:33→21:03)
[2017-08-21] MEDS: CETIRIZINE 10 MG TABLET PO SCH (09:34)
[2017-08-21] MEDS: FAMOTIDINE 20 MG TABLET PO SCH ×2 (09:34→21:03)
[2017-08-21] MEDS: PRAVASTATIN 20 MG TABLET PO SCH (09:34)
[2017-08-21] MEDS: ASPIRIN EC 81 MG TABLET PO SCH (09:34)
[2017-08-21] MEDS: DIVALPROEX 250 MG TABLET PO SCH (09:34)
[2017-08-21] MEDS: CARVEDILOL 25 MG TABLET PO SCH ×2 (09:34→18:05)
[2017-08-21] MEDS: OLANZapine 5 MG TABLET PO SCH (09:34)
[2017-08-21] MEDS ORDERED: LACTULOSE 20 GM/30 ML UDCUP PO ONE (13:58)
[2017-08-21] MEDS: MEROPENEM 500 MG in SYRINGE 1 EACH IV SCH (15:22)
[2017-08-21] MEDS: ENOXAPARIN 30 MG/0.3 ML SYRINGE SUBCUT SCH (21:03)
[2017-08-21] MEDS: traZODone 50 MG TABLET PO SCH (21:03)
[2017-08-22] MEDS: MEROPENEM 500 MG in SYRINGE 1 EACH IV SCH ×2 (02:38→15:17)
[2017-08-22] MEDS: LEVOTHYROXINE 137 MCG TABLET PO SCH (06:01)
[2017-08-22 06:42] LABS: Basophils # 0.1 10*3/uL (0.0-0.2); Basophils % 0.7 % (0.0-0.8); Eosinophils # 0.2 10*3/uL (0.0-0.87); Eosinophils % 1.4 % (0.00-10.9); Hematocrit 27.2 VOL% (35.7-47.0); Hemoglobin 8.6 GM/DL (12.0-16.0); Immature Granulocytes % 14.2 %; Immature Granulocytes Absolute 1.87 #; Lymphocytes # 1.6 10*3/uL (1.4-4.0); Lymphocytes % 12.2 % (21.3-54.2); Mean Corpuscular HGB Conc 31.6 GM/DL (32-36); Mean Corpuscular Hemoglobin 27 PG (27-34); Mean Corpuscular Volume 83.7 FL (87-102); Mean Platelet Volume 10.4 FL (9.6-12.0); Monocytes # 1.4 10*3/uL (0.11-0.8); Monocytes % 10.6 % (1.7-12.7); NRBC # 0.02 10*3/uL; Neutrophils % 60.9 % (38.7-73.9); Platelet Count 358 T/CUMM (130-400); Red Blood Count 3.25 MC/CUMM (3.8-5.5); Red Cell Distribution Width 17.5 % (9.3-17.3); White Blood Count 13.2 T/CUMM (4-12)
[2017-08-22 06:56] LABS: Calcium 8.3 MG/DL (8.5-10.1); Osmolality,Calculated 292.6 MOS/KG (273-304); Potassium 4.5 MMOL/L (3.5-5.1)
[2017-08-22 07:05] LABS: Eosinophils 1 % (0-10); Giant Platelets Few; Hypochromasia 1+; Lymphocytes 14 % (20-55); Ovalocytes Slight; Platelet Estimate Adequate; Segmented Neutrophils 76 % (50-85); Total Cells Counted 100
[2017-08-22 07:06] LABS: Microcytosis 1+
[2017-08-22] MEDS: INSULIN REGULAR 100 UNIT/ML SUBCUT SCH ×4 (07:08→21:34)
[2017-08-22] MEDS: FLUTICASONE 50 MCG NASAL SPRAY 16 GM BOTTLE BOTH NARES SCH (09:38)
[2017-08-22] MEDS: POLYVINYL ALCOHOL 1.4% OPH SOLN 15 ML BOTTLE BOTH EYES SCH ×2 (09:39→21:30)
[2017-08-22] MEDS: PRAVASTATIN 20 MG TABLET PO SCH (09:39)
[2017-08-22] MEDS: FAMOTIDINE 20 MG TABLET PO SCH ×2 (09:39→21:30)
[2017-08-22] MEDS: CARVEDILOL 25 MG TABLET PO SCH ×2 (09:39→17:52)
[2017-08-22] MEDS: CETIRIZINE 10 MG TABLET PO SCH (09:39)
[2017-08-22] MEDS: OLANZapine 5 MG TABLET PO SCH (09:39)
[2017-08-22] MEDS: TOLTERODINE 2 MG TABLET PO SCH ×2 (09:39→21:30)
[2017-08-22] MEDS: ASPIRIN EC 81 MG TABLET PO SCH (09:39)
[2017-08-22] MEDS: POLYETHYLENE GLYCOL POWDER 17 GM PACK PO SCH (09:39)
[2017-08-22] MEDS: traZODone 50 MG TABLET PO SCH (21:30)
[2017-08-22] MEDS: ENOXAPARIN 30 MG/0.3 ML SYRINGE SUBCUT SCH (21:35)
[2017-08-23] MEDS: MEROPENEM 500 MG in SYRINGE 1 EACH IV SCH ×2 (02:41→17:04)
[2017-08-23] MEDS: LEVOTHYROXINE 137 MCG TABLET PO SCH (05:49)
[2017-08-23 06:15] LABS: Basophils # 0.1 10*3/uL (0.0-0.2); Basophils % 0.7 % (0.0-0.8); Eosinophils # 0.2 10*3/uL (0.0-0.87); Eosinophils % 1.8 % (0.00-10.9); Hematocrit 28.4 VOL% (35.7-47.0); Hemoglobin 8.9 GM/DL (12.0-16.0); Immature Granulocytes % 11.4 %; Immature Granulocytes Absolute 1.37 #; Lymphocytes # 1.9 10*3/uL (1.4-4.0); Lymphocytes % 15.6 % (21.3-54.2); Mean Corpuscular HGB Conc 31.3 GM/DL (32-36); Mean Corpuscular Hemoglobin 27 PG (27-34); Mean Corpuscular Volume 84.8 FL (87-102); Mean Platelet Volume 10.4 FL (9.6-12.0); Monocytes # 1.3 10*3/uL (0.11-0.8); NRBC # 0.02 10*3/uL; Neutrophils # 7.1 10*3/uL (1.4-7.4); Neutrophils % 59.5 % (38.7-73.9); Platelet Count 344 T/CUMM (130-400); Red Blood Count 3.35 MC/CUMM (3.8-5.5); Red Cell Distribution Width 17.5 % (9.3-17.3)
[2017-08-23 06:30] LABS: Calcium 8.3 MG/DL (8.5-10.1); Osmolality,Calculated 285.8 MOS/KG (273-304); Potassium 4.7 MMOL/L (3.5-5.1)
[2017-08-23 06:56] LABS: Band Neutrophils 6 % (0-10); Eosinophils 2 % (0-10); Lymphocytes 7 % (20-55); Segmented Neutrophils 73 % (50-85); Total Cells Counted 100
[2017-08-23 06:57] LABS: Burr Cells Slight; Giant Platelets Few; Microcytosis Slight; Ovalocytes Slight; Platelet Estimate Adequate
[2017-08-23] MEDS: INSULIN REGULAR 100 UNIT/ML SUBCUT SCH ×4 (07:36→21:34)
[2017-08-23] MEDS: POLYVINYL ALCOHOL 1.4% OPH SOLN 15 ML BOTTLE BOTH EYES SCH ×2 (10:42→21:34)
[2017-08-23] MEDS: POLYETHYLENE GLYCOL POWDER 17 GM PACK PO SCH (10:43)
[2017-08-23] MEDS: FLUTICASONE 50 MCG NASAL SPRAY 16 GM BOTTLE BOTH NARES SCH (10:43)
[2017-08-23] MEDS: TOLTERODINE 2 MG TABLET PO SCH ×2 (10:45→21:33)
[2017-08-23] MEDS: ASPIRIN EC 81 MG TABLET PO SCH (10:45)
[2017-08-23] MEDS: CETIRIZINE 10 MG TABLET PO SCH (10:45)
[2017-08-23] MEDS: FAMOTIDINE 20 MG TABLET PO SCH ×2 (10:45→21:33)
[2017-08-23] MEDS: CARVEDILOL 25 MG TABLET PO SCH ×2 (10:45→17:04)
[2017-08-23] MEDS: PRAVASTATIN 20 MG TABLET PO SCH (10:45)
[2017-08-23] MEDS: OLANZapine 5 MG TABLET PO SCH (10:47)
[2017-08-23] MEDS: SODIUM CHLORIDE 0.9% 1,000 ML IV SCH (12:40)
[2017-08-23] MEDS: traZODone 50 MG TABLET PO SCH (21:33)
[2017-08-23] MEDS: ENOXAPARIN 30 MG/0.3 ML SYRINGE SUBCUT SCH (21:34)
[2017-08-24] MEDS: MEROPENEM 500 MG in SYRINGE 1 EACH IV SCH ×2 (02:37→14:43)
[2017-08-24] MEDS: LEVOTHYROXINE 137 MCG TABLET PO SCH (05:22)
[2017-08-24] MEDS: INSULIN REGULAR 100 UNIT/ML SUBCUT SCH ×4 (08:10→20:41)
[2017-08-24] MEDS: POLYETHYLENE GLYCOL POWDER 17 GM PACK PO SCH (09:09)
[2017-08-24] MEDS: FAMOTIDINE 20 MG TABLET PO SCH ×2 (09:09→20:36)
[2017-08-24] MEDS: TOLTERODINE 2 MG TABLET PO SCH ×2 (09:09→20:36)
[2017-08-24] MEDS: ASPIRIN EC 81 MG TABLET PO SCH (09:09)
[2017-08-24] MEDS: FLUTICASONE 50 MCG NASAL SPRAY 16 GM BOTTLE BOTH NARES SCH (09:10)
[2017-08-24] MEDS: CARVEDILOL 25 MG TABLET PO SCH ×2 (09:10→16:49)
[2017-08-24] MEDS: CETIRIZINE 10 MG TABLET PO SCH (09:10)
[2017-08-24] MEDS: OLANZapine 5 MG TABLET PO SCH (09:10)
[2017-08-24] MEDS: POLYVINYL ALCOHOL 1.4% OPH SOLN 15 ML BOTTLE BOTH EYES SCH ×2 (09:10→20:37)
[2017-08-24] MEDS: PRAVASTATIN 20 MG TABLET PO SCH (09:10)
[2017-08-24] MEDS: traZODone 50 MG TABLET PO SCH (20:36)
[2017-08-24] MEDS: ENOXAPARIN 30 MG/0.3 ML SYRINGE SUBCUT SCH (20:36)
[2017-08-25] MEDS: MEROPENEM 500 MG in SYRINGE 1 EACH IV SCH ×2 (02:36→16:45)
[2017-08-25 04:52] LABS: Basophils # 0.1 10*3/uL (0.0-0.2); Basophils % 0.7 % (0.0-0.8); Eosinophils # 0.2 10*3/uL (0.0-0.87); Eosinophils % 2.3 % (0.00-10.9); Hematocrit 28.6 VOL% (35.7-47.0); Hemoglobin 8.8 GM/DL (12.0-16.0); Immature Granulocytes Absolute 0.41 #; Lymphocytes # 1.9 10*3/uL (1.4-4.0); Lymphocytes % 22.3 % (21.3-54.2); Mean Corpuscular HGB Conc 30.8 GM/DL (32-36); Mean Corpuscular Hemoglobin 27 PG (27-34); Mean Corpuscular Volume 86.7 FL (87-102); Mean Platelet Volume 10.4 FL (9.6-12.0); Monocytes # 1.1 10*3/uL (0.11-0.8); Monocytes % 12.7 % (1.7-12.7); Neutrophils # 4.7 10*3/uL (1.4-7.4); Platelet Count 295 T/CUMM (130-400); Red Cell Distribution Width 17.1 % (9.3-17.3); White Blood Count 8.3 T/CUMM (4-12)
[2017-08-25 05:11] LABS: Calcium 8.9 MG/DL (8.5-10.1); Osmolality,Calculated 279.4 MOS/KG (273-304); Potassium 4.3 MMOL/L (3.5-5.1)
[2017-08-25] MEDS: LEVOTHYROXINE 137 MCG TABLET PO SCH (05:38)
[2017-08-25] MEDS: INSULIN REGULAR 100 UNIT/ML SUBCUT SCH ×4 (08:19→21:21)
[2017-08-25] MEDS: CARVEDILOL 25 MG TABLET PO SCH ×2 (08:59→16:45)
[2017-08-25] MEDS: OLANZapine 5 MG TABLET PO SCH (08:59)
[2017-08-25] MEDS: POLYETHYLENE GLYCOL POWDER 17 GM PACK PO SCH (08:59)
[2017-08-25] MEDS: ASPIRIN EC 81 MG TABLET PO SCH (08:59)
[2017-08-25] MEDS: TOLTERODINE 2 MG TABLET PO SCH ×2 (08:59→21:23)
[2017-08-25] MEDS: PRAVASTATIN 20 MG TABLET PO SCH (08:59)
[2017-08-25] MEDS: POLYVINYL ALCOHOL 1.4% OPH SOLN 15 ML BOTTLE BOTH EYES SCH ×2 (08:59→21:23)
[2017-08-25] MEDS: CETIRIZINE 10 MG TABLET PO SCH (08:59)
[2017-08-25] MEDS: FAMOTIDINE 20 MG TABLET PO SCH ×2 (08:59→21:21)
[2017-08-25] MEDS: FLUTICASONE 50 MCG NASAL SPRAY 16 GM BOTTLE BOTH NARES SCH (09:00)
[2017-08-25] MEDS: ENOXAPARIN 30 MG/0.3 ML SYRINGE SUBCUT SCH (21:21)
[2017-08-25] MEDS: traZODone 50 MG TABLET PO SCH (21:21)
[2017-08-26] MEDS: MEROPENEM 500 MG in SYRINGE 1 EACH IV SCH ×2 (02:55→16:50)
[2017-08-26 05:29] LABS: Basophils # 0.1 10*3/uL (0.0-0.2); Basophils % 0.7 % (0.0-0.8); Eosinophils # 0.2 10*3/uL (0.0-0.87); Eosinophils % 2.3 % (0.00-10.9); Hematocrit 27.9 VOL% (35.7-47.0); Hemoglobin 8.7 GM/DL (12.0-16.0); Immature Granulocytes Absolute 0.15 #; Lymphocytes # 1.7 10*3/uL (1.4-4.0); Lymphocytes % 22.7 % (21.3-54.2); Mean Corpuscular HGB Conc 31.2 GM/DL (32-36); Mean Corpuscular Hemoglobin 27 PG (27-34); Mean Corpuscular Volume 85.6 FL (87-102); Mean Platelet Volume 10.1 FL (9.6-12.0); Monocytes # 1.1 10*3/uL (0.11-0.8); Monocytes % 13.7 % (1.7-12.7); Neutrophils # 4.5 10*3/uL (1.4-7.4); Neutrophils % 58.6 % (38.7-73.9); Platelet Count 272 T/CUMM (130-400); Red Blood Count 3.26 MC/CUMM (3.8-5.5); Red Cell Distribution Width 17.1 % (9.3-17.3); White Blood Count 7.7 T/CUMM (4-12)
[2017-08-26 05:57] LABS: Calcium 8.6 MG/DL (8.5-10.1); Osmolality,Calculated 279.4 MOS/KG (273-304); Potassium 4.4 MMOL/L (3.5-5.1)
[2017-08-26] MEDS: LEVOTHYROXINE 137 MCG TABLET PO SCH (06:03)
[2017-08-26] MEDS: INSULIN REGULAR 100 UNIT/ML SUBCUT SCH ×4 (08:09→21:00)
[2017-08-26] MEDS: FLUTICASONE 50 MCG NASAL SPRAY 16 GM BOTTLE BOTH NARES SCH (09:19)
[2017-08-26] MEDS: POLYETHYLENE GLYCOL POWDER 17 GM PACK PO SCH (09:19)
[2017-08-26] MEDS: TOLTERODINE 2 MG TABLET PO SCH ×2 (09:20→20:57)
[2017-08-26] MEDS: PRAVASTATIN 20 MG TABLET PO SCH (09:20)
[2017-08-26] MEDS: ASPIRIN EC 81 MG TABLET PO SCH (09:20)
[2017-08-26] MEDS: CARVEDILOL 25 MG TABLET PO SCH ×2 (09:20→16:48)
[2017-08-26] MEDS: FAMOTIDINE 20 MG TABLET PO SCH ×2 (09:20→20:57)
[2017-08-26] MEDS: OLANZapine 5 MG TABLET PO SCH (09:20)
[2017-08-26] MEDS: POLYVINYL ALCOHOL 1.4% OPH SOLN 15 ML BOTTLE BOTH EYES SCH ×2 (09:22→20:59)
[2017-08-26] MEDS: CETIRIZINE 10 MG TABLET PO SCH (09:34)
[2017-08-26] MEDS: traZODone 50 MG TABLET PO SCH (20:57)
[2017-08-26] MEDS: ENOXAPARIN 30 MG/0.3 ML SYRINGE SUBCUT SCH (21:00)
[2017-08-27] MEDS: MEROPENEM 500 MG in SYRINGE 1 EACH IV SCH (03:15)
[2017-08-27 05:41] LABS: Basophils # 0.1 10*3/uL (0.0-0.2); Basophils % 1.3 % (0.0-0.8); Eosinophils # 0.2 10*3/uL (0.0-0.87); Eosinophils % 2.9 % (0.00-10.9); Hematocrit 43.2 VOL% (35.7-47.0); Hemoglobin 13.4 GM/DL (12.0-16.0); Immature Granulocytes Absolute 0.16 #; Lymphocytes # 1.8 10*3/uL (1.4-4.0); Mean Corpuscular Hemoglobin 26 PG (27-34); Mean Corpuscular Volume 84.4 FL (87-102); Monocytes # 1.1 10*3/uL (0.11-0.8); Monocytes % 13.7 % (1.7-12.7); Neutrophils # 4.6 10*3/uL (1.4-7.4); Neutrophils % 57.1 % (38.7-73.9); Platelet Count 195 T/CUMM (130-400); Red Blood Count 5.12 MC/CUMM (3.8-5.5); Red Cell Distribution Width 17.6 % (9.3-17.3)
[2017-08-27 05:58] LABS: Calcium 8.7 MG/DL (8.5-10.1); Osmolality,Calculated 278.4 MOS/KG (273-304); Potassium 4.4 MMOL/L (3.5-5.1)
[2017-08-27] MEDS: LEVOTHYROXINE 137 MCG TABLET PO SCH (06:09)
[2017-08-27] MEDS: INSULIN REGULAR 100 UNIT/ML SUBCUT SCH ×2 (08:07→11:05)
[2017-08-27] MEDS: TOLTERODINE 2 MG TABLET PO SCH (09:56)
[2017-08-27] MEDS: FAMOTIDINE 20 MG TABLET PO SCH (09:56)
[2017-08-27] MEDS: FLUTICASONE 50 MCG NASAL SPRAY 16 GM BOTTLE BOTH NARES SCH (09:56)
[2017-08-27] MEDS: OLANZapine 5 MG TABLET PO SCH (09:56)
[2017-08-27] MEDS: PRAVASTATIN 20 MG TABLET PO SCH (09:56)
[2017-08-27] MEDS: CARVEDILOL 25 MG TABLET PO SCH (09:56)
[2017-08-27] MEDS: ASPIRIN EC 81 MG TABLET PO SCH (09:56)
[2017-08-27] MEDS: CETIRIZINE 10 MG TABLET PO SCH (09:56)
[2017-08-27] MEDS: POLYETHYLENE GLYCOL POWDER 17 GM PACK PO SCH (09:58)
[2017-08-27] MEDS: POLYVINYL ALCOHOL 1.4% OPH SOLN 15 ML BOTTLE BOTH EYES SCH (09:58)
[2017-08-27 11:48] VITALS: BP 98/60
== END 2017-08-27 14:50 | DRG 689 ==
LOC: EDBD → EDUNIT# → N.ED 15:39 → SUATTDRO 19:14 → N.EDINP 19:14 → N.3E 20:28
PROVIDERS: ADMIT Internal Medicine; ATTEND Internal Medicine Nephrology

== ENCOUNTER 2018-02-05 14:44 | Observation (INO) ==
[2018-02-05 15:13] LABS: Basophils % 0.5 % (0.0-0.8); Eosinophils # 0.2 10*3/uL (0.0-0.87); Eosinophils % 2.1 % (0.00-10.9); Hematocrit 33.3 VOL% (35.7-47.0); Hemoglobin 10.8 GM/DL (12.0-16.0); Immature Granulocytes % 0.5 %; Immature Granulocytes Absolute 0.04 #; Lymphocytes # 2.1 10*3/uL (1.4-4.0); Lymphocytes % 23.8 % (21.3-54.2); Mean Corpuscular HGB Conc 32.4 GM/DL (32-36); Mean Corpuscular Hemoglobin 27 PG (27-34); Mean Corpuscular Volume 81.8 FL (87-102); Mean Platelet Volume 10.9 FL (9.6-12.0); Monocytes # 0.8 10*3/uL (0.11-0.8); Monocytes % 9.5 % (1.7-12.7); Neutrophils # 5.6 10*3/uL (1.4-7.4); Neutrophils % 63.6 % (38.7-73.9); Platelet Count 236 T/CUMM (130-400); Red Blood Count 4.07 MC/CUMM (3.8-5.5); White Blood Count 8.9 T/CUMM (4-12)
[2018-02-05 15:35] LABS: Alanine Aminotransferase 14 U/L (13-56); Albumin 3.1 G/DL (3.4-5.0); Alkaline Phosphatase 58 U/L (45-117); Aspartate Amino Transferase 13 U/L (0-37); Bilirubin,Total < 0.39 MG/DL (0.2-1.0); Blood Urea Nitrogen 47 MG/DL (7-18); Calcium 8.9 MG/DL (8.5-10.1); Glucose 76 MG/DL (74-106); Osmolality,Calculated 270.8 MOS/KG (273-304); Potassium 4.7 MMOL/L (3.5-5.1); Sodium 130 MMOL/L (136-145); Total Protein 6.8 G/DL (6.4-8.3)
[2018-02-05 16:18] LABS: Apearance,Urine CLEAR (Clear); Bilirubin,Urine Negative (Negative); Blood, Urine Negative (Negative); Glucose,Urine (UA) Negative (Negative); Ketones,Urine Negative (Negative); Nitrite,Urine Negative (Negative); Protein,Urine Negative; Urine Color Straw (Yellow); Urine Specific Gravity 1.003 (1.001-1.035); Urine Urobilinogen < 2.0 EU/DL (0.2-1.0); WBC,Urine <1 /HPF (0-6)
[2018-02-05 20:22] LABS: Lactic Acid 0.9 MMOL/L (0.4-2.0)
[2018-02-05 21:52] LABS: Hematocrit 31.1 VOL% (35.7-47.0); Hemoglobin 10.3 GM/DL (12.0-16.0)
[2018-02-05] MEDS: SODIUM CHLORIDE 0.9% 1,000 ML IV SCH (22:33)
[2018-02-05] MEDS: ACETAMINOPHEN 325 MG TABLET PO PRN (23:15)
[2018-02-06 04:30] LABS: Basophils % 0.5 % (0.0-0.8); Eosinophils # 0.2 10*3/uL (0.0-0.87); Eosinophils % 1.8 % (0.00-10.9); Hematocrit 31.8 VOL% (35.7-47.0); Hemoglobin 10.2 GM/DL (12.0-16.0); Immature Granulocytes % 0.4 %; Immature Granulocytes Absolute 0.03 #; Lymphocytes # 1.4 10*3/uL (1.4-4.0); Mean Corpuscular HGB Conc 32.1 GM/DL (32-36); Mean Corpuscular Hemoglobin 26 PG (27-34); Mean Corpuscular Volume 81.1 FL (87-102); Mean Platelet Volume 10.8 FL (9.6-12.0); Monocytes # 0.8 10*3/uL (0.11-0.8); Monocytes % 9.1 % (1.7-12.7); Neutrophils # 6.1 10*3/uL (1.4-7.4); Neutrophils % 72.2 % (38.7-73.9); Platelet Count 226 T/CUMM (130-400); Red Blood Count 3.92 MC/CUMM (3.8-5.5); Red Cell Distribution Width 16.1 % (9.3-17.3); White Blood Count 8.5 T/CUMM (4-12)
[2018-02-06 04:32] LABS: Hemoglobin 10.2 GM/DL (12.0-16.0)
[2018-02-06 04:56] LABS: Albumin 2.9 G/DL (3.4-5.0); Bilirubin,Total 0.6 MG/DL (0.2-1.0); Calcium 8.7 MG/DL (8.5-10.1); Osmolality,Calculated 285.7 MOS/KG (273-304); Potassium 4.3 MMOL/L (3.5-5.1); Thyroid Stimulating Hormone 0.827 uIU/ml (0.358-3.74); Total Protein 6.1 G/DL (6.4-8.3)
[2018-02-06] MEDS: ONDANSETRON 4 MG/2 ML VIAL IV PRN ×3 (07:27→21:02)
[2018-02-06] MEDS: PANTOPRAZOLE 40 MG TABLET PO SCH (08:19)
[2018-02-06] MEDS: SODIUM CHLORIDE 0.9% 1,000 ML IV SCH ×2 (10:17→22:22)
[2018-02-06] MEDS: ACETAMINOPHEN 325 MG TABLET PO PRN (10:23)
[2018-02-06 11:24] LABS: Hematocrit 30.9 VOL% (35.7-47.0)
[2018-02-06] MEDS ORDERED: BISACODYL 10 MG SUPP RECTAL ONE (17:08)
[2018-02-06] MEDS: POLYETHYLENE GLYCOL POWDER 17 GM PACK PO SCH (20:59)
[2018-02-07] MEDS ORDERED: hydrALAZINE 20 MG/1 ML VIAL IV ONE (04:29)
[2018-02-07 06:10] LABS: Basophils % 0.7 % (0.0-0.8); Eosinophils # 0.2 10*3/uL (0.0-0.87); Eosinophils % 3.1 % (0.00-10.9); Hematocrit 33.2 VOL% (35.7-47.0); Hemoglobin 10.2 GM/DL (12.0-16.0); Immature Granulocytes % 0.3 %; Immature Granulocytes Absolute 0.02 #; Lymphocytes # 1.6 10*3/uL (1.4-4.0); Lymphocytes % 26.3 % (21.3-54.2); Mean Corpuscular HGB Conc 30.7 GM/DL (32-36); Mean Corpuscular Hemoglobin 26 PG (27-34); Mean Corpuscular Volume 84.5 FL (87-102); Mean Platelet Volume 11.3 FL (9.6-12.0); Monocytes # 0.6 10*3/uL (0.11-0.8); Monocytes % 10.3 % (1.7-12.7); Neutrophils # 3.5 10*3/uL (1.4-7.4); Neutrophils % 59.3 % (38.7-73.9); Platelet Count 220 T/CUMM (130-400); Red Blood Count 3.93 MC/CUMM (3.8-5.5); Red Cell Distribution Width 16.3 % (9.3-17.3); White Blood Count 5.9 T/CUMM (4-12)
[2018-02-07 06:46] LABS: Alanine Aminotransferase 11 U/L (13-56); Albumin 2.8 G/DL (3.4-5.0); Alkaline Phosphatase 55 U/L (45-117); Aspartate Amino Transferase 7 U/L (0-37); Bilirubin,Total < 0.39 MG/DL (0.2-1.0); Blood Urea Nitrogen 25 MG/DL (7-18); Calcium 8.8 MG/DL (8.5-10.1); Glucose 94 MG/DL (74-106); Osmolality,Calculated 293.6 MOS/KG (273-304); Potassium 4.1 MMOL/L (3.5-5.1); Sodium 146 MMOL/L (136-145)
[2018-02-07] MEDS: POLYETHYLENE GLYCOL POWDER 17 GM PACK PO SCH (09:40)
[2018-02-07] MEDS: PANTOPRAZOLE 40 MG TABLET PO SCH (09:40)
[2018-02-07] MEDS ORDERED: CARVEDILOL 25 MG TABLET PO SCH (13:00)
[2018-02-07 13:06] VITALS: BP 126/59
[2018-02-07] MEDS ORDERED: PNEUMOCOCCAL VACCINE (23 VALENT) 0.5 ML VIAL IM ONE (15:43)
== END 2018-02-07 15:59 ==
LOC: EDUNIT# → EDBD → N.ED 14:44 → N.4E 14:44
PROVIDERS: ADMIT Internal Medicine; ATTEND Internal Medicine

== ENCOUNTER 2018-08-02 02:26 | Observation (INO) ==
[2018-08-02] MEDS ORDERED: FUROSEMIDE 100 MG/10 ML VIAL IV STA (03:09)
[2018-08-02 04:06] LABS: Basophils % 0.5 % (0.0-0.8); Eosinophils # 0.1 10*3/uL (0.0-0.87); Eosinophils % 1.4 % (0.00-10.9); Hematocrit 36.6 VOL% (35.7-47.0); Hemoglobin 11.6 GM/DL (12.0-16.0); Immature Granulocytes % 0.6 %; Immature Granulocytes Absolute 0.04 #; Lymphocytes # 1.6 10*3/uL (1.4-4.0); Mean Corpuscular HGB Conc 31.7 GM/DL (32-36); Mean Corpuscular Volume 82.2 FL (87-102); Mean Platelet Volume 11.1 FL (9.6-12.0); Neutrophils % 61.5 % (38.7-73.9); Platelet Count 101 T/CUMM (130-400); Red Blood Count 4.45 MC/CUMM (3.8-5.5); Red Cell Distribution Width 15.6 % (9.3-17.3); White Blood Count 6.4 T/CUMM (4-12)
[2018-08-02 04:18] LABS: INR 0.9; PT Patient Result 10.1 SECS
[2018-08-02] MEDS ORDERED: hydrALAZINE 20 MG/1 ML VIAL IV STA ×2 (04:24→05:46)
[2018-08-02 04:30] LABS: Platelet Estimate Decreased
[2018-08-02 04:42] LABS: Alanine Aminotransferase 13 U/L (13-56); Albumin 3.6 G/DL (3.4-5.0); Alkaline Phosphatase 60 U/L (45-117); Aspartate Amino Transferase 12 U/L (0-37); Bilirubin,Total < 0.39 MG/DL (0.2-1.0); Blood Urea Nitrogen 20 MG/DL (7-18); Calcium 10.1 MG/DL (8.5-10.1); Glucose 92 MG/DL (74-106); Osmolality,Calculated 290.7 MOS/KG (273-304); Total Protein 7.1 G/DL (6.4-8.3)
[2018-08-02] MEDS ORDERED: LABETALOL 20 MG/4 ML SYRINGE IV STA (05:08)
[2018-08-02] MEDS ORDERED: ONDANSETRON 4 MG/2 ML VIAL IV ONE (05:20)
[2018-08-02] MEDS ORDERED: ONDANSETRON 4 MG/2 ML VIAL ONE (05:21)
[2018-08-02 05:39] LABS: ABG HCO3 26.2 MMOL/L (20-26); ABG Oxygen Saturation 98.9 % (95-100); ABG PCO2 26.8 MM HG (35-48); ABG PH 7.547 (7.35-7.45); ABG TCO2 20.1 MMOL/L (23-27); Allen Test Positive
[2018-08-02] MEDS ORDERED: NITROGLYCERIN 2% OINT 1 INCH/GM PACK TOP STA (05:46)
[2018-08-02] MEDS ORDERED: ACETAMINOPHEN 325 MG TABLET PO PRN ×2 (06:01→06:34)
[2018-08-02] MEDS ORDERED: DOCUSATE SODIUM 100 MG CAPSULE PO PRN (06:01)
[2018-08-02] MEDS ORDERED: NICOTINE 21 MG/24 HR PATCH TRANSDERM PRN (06:01)
[2018-08-02] MEDS ORDERED: traZODone 50 MG TABLET PO PRN (06:01)
[2018-08-02] MEDS ORDERED: hydrALAZINE 20 MG/1 ML VIAL IV PRN (06:33)
[2018-08-02] MEDS ORDERED: MAGNESIUM HYDROXIDE SUSP 30 ML UDCUP PO PRN (06:34)
[2018-08-02] MEDS ORDERED: ALUMINUM/MAGNES/SIMETH MAX STR 30 ML UDCUP PO PRN (06:34)
[2018-08-02] MEDS ORDERED: FLUTICASONE FUROATE VILANTEROL INH SCH (09:00)
[2018-08-02] MEDS: FUROSEMIDE 40 MG/4 ML VIAL IV SCH ×2 (10:12→23:27)
[2018-08-02] MEDS: FLUTICASONE 50 MCG NASAL SPRAY 16 GM BOTTLE BOTH NARES SCH (10:12)
[2018-08-02] MEDS: POLYETHYLENE GLYCOL POWDER 17 GM PACK PO SCH ×2 (10:14→23:28)
[2018-08-02] MEDS: ASPIRIN EC 81 MG TABLET PO SCH (10:14)
[2018-08-02] MEDS: CETIRIZINE 10 MG TABLET PO SCH (10:14)
[2018-08-02] MEDS: FAMOTIDINE 20 MG TABLET PO SCH ×2 (10:14→23:28)
[2018-08-02] MEDS: OLANZapine 5 MG TABLET PO SCH (10:14)
[2018-08-02] MEDS: hydrALAZINE 25 MG TABLET PO SCH ×4 (10:14→23:28)
[2018-08-02] MEDS: ENOXAPARIN 30 MG/0.3 ML SYRINGE SUBCUT SCH (10:15)
[2018-08-02] MEDS: CARVEDILOL 25 MG TABLET PO SCH ×2 (10:15→23:28)
[2018-08-02] MEDS: LEVOTHYROXINE 137 MCG TABLET PO SCH (10:15)
[2018-08-02] MEDS: DIVALPROEX 250 MG TABLET PO SCH ×2 (10:15→23:27)
[2018-08-02] MEDS: FERROUS SULFATE 325 MG TABLET PO SCH (10:15)
[2018-08-02] MEDS: PANTOPRAZOLE 40 MG TABLET PO SCH (10:15)
[2018-08-02] MEDS: POLYVINYL ALCOHOL 1.4% OPH SOLN 15 ML BOTTLE BOTH EYES SCH ×2 (10:16→23:28)
[2018-08-02] MEDS: SIMVASTATIN 10 MG TABLET PO SCH (10:29)
[2018-08-02] MEDS: ONDANSETRON 4 MG/2 ML VIAL IV PRN (10:50)
[2018-08-02] MEDS ORDERED: traZODone 50 MG TABLET PO SCH (21:00)
[2018-08-03] MEDS: LEVOTHYROXINE 137 MCG TABLET PO SCH (06:03)
[2018-08-03 06:13] LABS: Basophils # 0.1 10*3/uL (0.0-0.2); Basophils % 0.8 % (0.0-0.8); Eosinophils % 0.3 % (0.00-10.9); Hematocrit 40.7 VOL% (35.7-47.0); Hemoglobin 12.6 GM/DL (12.0-16.0); Immature Granulocytes % 0.8 %; Immature Granulocytes Absolute 0.06 #; Lymphocytes # 1.7 10*3/uL (1.4-4.0); Lymphocytes % 23.2 % (21.3-54.2); Mean Corpuscular Volume 83.2 FL (87-102); Mean Platelet Volume 10.5 FL (9.6-12.0); Neutrophils % 60.9 % (38.7-73.9); Platelet Count 231 T/CUMM (130-400); Red Blood Count 4.89 MC/CUMM (3.8-5.5); White Blood Count 7.5 T/CUMM (4-12)
[2018-08-03 06:31] LABS: Calcium 9.9 MG/DL (8.5-10.1)
[2018-08-03] MEDS: FUROSEMIDE 40 MG/4 ML VIAL IV SCH (06:45)
[2018-08-03] MEDS: hydrALAZINE 25 MG TABLET PO SCH ×2 (08:29→13:47)
[2018-08-03] MEDS: CARVEDILOL 25 MG TABLET PO SCH (08:30)
[2018-08-03] MEDS ORDERED: amLODIPine 5 MG TABLET PO SCH (09:00)
[2018-08-03] MEDS: FLUTICASONE 50 MCG NASAL SPRAY 16 GM BOTTLE BOTH NARES SCH (09:20)
[2018-08-03] MEDS: DIVALPROEX 250 MG TABLET PO SCH (09:22)
[2018-08-03] MEDS: ASPIRIN EC 81 MG TABLET PO SCH (09:22)
[2018-08-03] MEDS: SIMVASTATIN 10 MG TABLET PO SCH (09:22)
[2018-08-03] MEDS: OLANZapine 5 MG TABLET PO SCH (09:22)
[2018-08-03] MEDS: FERROUS SULFATE 325 MG TABLET PO SCH (09:22)
[2018-08-03] MEDS: CETIRIZINE 10 MG TABLET PO SCH (09:22)
[2018-08-03] MEDS: FAMOTIDINE 20 MG TABLET PO SCH (09:22)
[2018-08-03] MEDS: POLYETHYLENE GLYCOL POWDER 17 GM PACK PO SCH (09:22)
[2018-08-03] MEDS: ENOXAPARIN 30 MG/0.3 ML SYRINGE SUBCUT SCH (09:22)
[2018-08-03] MEDS: PANTOPRAZOLE 40 MG TABLET PO SCH (09:22)
[2018-08-03] MEDS: POLYVINYL ALCOHOL 1.4% OPH SOLN 15 ML BOTTLE BOTH EYES SCH (09:23)
[2018-08-03] MEDS: ONDANSETRON 4 MG/2 ML VIAL IV PRN (09:32)
[2018-08-03 12:07] VITALS: BP 181/94
== END 2018-08-03 15:06 ==
LOC: EDBD → EDUNIT# → N.EDINP 02:26 → N.ED 02:26 → N.TELEN 06:21
PROVIDERS: ADMIT Family Medicine; ATTEND Family Medicine

== ENCOUNTER 2018-12-17 15:46 | Observation (INO) ==
[2018-12-17] MEDS ORDERED: PHENAZOPYRIDINE 95 MG TABLET PO STA (16:13)
[2018-12-17] MEDS ORDERED: ORPHENADRINE 60 MG/2 ML VIAL IV STA (16:13)
[2018-12-17] MEDS ORDERED: ONDANSETRON 4 MG/2 ML VIAL IV STA (16:13)
[2018-12-17 16:32] LABS: Basophils % 0.6 % (0.0-0.8); Eosinophils % 0.6 % (0.00-10.9); Hematocrit 35.5 VOL% (35.7-47.0); Immature Granulocytes % 0.6 %; Immature Granulocytes Absolute 0.04 #; Lymphocytes # 1.6 10*3/uL (1.4-4.0); Lymphocytes % 25.5 % (21.3-54.2); Mean Corpuscular Volume 87.7 FL (87-102); Mean Platelet Volume 10.7 FL (9.6-12.0); Neutrophils % 61.7 % (38.7-73.9); Platelet Count 221 T/CUMM (130-400); Red Blood Count 4.05 MC/CUMM (3.8-5.5); Red Cell Distribution Width 14.9 % (9.3-17.3); White Blood Count 6.2 T/CUMM (4-12)
[2018-12-17 16:54] LABS: Alanine Aminotransferase 10 U/L (13-56); Albumin 3.2 G/DL (3.4-5.0); Alkaline Phosphatase 59 U/L (45-117); Aspartate Amino Transferase 8 U/L (0-37); Bilirubin,Total < 0.39 MG/DL (0.2-1.0); Blood Urea Nitrogen 20 MG/DL (7-18); Calcium 8.7 MG/DL (8.5-10.1); Estimated Glom Filtration Rate 23 ML/MIN; Glucose 88 MG/DL (74-106); Osmolality,Calculated 282.3 MOS/KG (273-304); Total Protein 6.6 G/DL (6.4-8.3)
[2018-12-17 17:22] LABS: Apearance,Urine CLEAR (Clear); Bilirubin,Urine Negative (Negative); Blood, Urine Negative (Negative); Glucose,Urine (UA) Negative (Negative); Ketones,Urine Negative (Negative); Mucus,Urine Occasional /LPF (Occasional); Nitrite,Urine Negative (Negative); Protein,Urine Negative; RBC,Urine <1 /HPF (0-4); Urine Color Colorless (Yellow); Urine Specific Gravity 1.003 (1.001-1.035); Urine Urobilinogen < 2.0 EU/DL (0.2-1.0); WBC,Urine <1 /HPF (0-6)
[2018-12-17] MEDS ORDERED: ONDANSETRON 4 MG/2 ML VIAL IV PRN (18:19)
[2018-12-17] MEDS ORDERED: cloNIDine 0.1 MG TABLET PO PRN (18:30)
[2018-12-17] MEDS: SODIUM CHLORIDE 0.9% 1,000 ML IV SCH (20:57)
[2018-12-17] MEDS ORDERED: TOLTERODINE 2 MG TABLET PO SCH (21:00)
[2018-12-17] MEDS: METHEN/SOD PHOS/METH BLUE/HYOS TABLET PO SCH (21:00)
[2018-12-17] MEDS ORDERED: ENOXAPARIN 30 MG/0.3 ML SYRINGE SUBCUT SCH (21:00)
[2018-12-17] MEDS: DIVALPROEX 250 MG TABLET PO SCH (21:01)
[2018-12-17] MEDS: carvediloL 25 MG TABLET PO SCH (21:01)
[2018-12-17] MEDS ORDERED: INFLUENZA VIRUS VACCINE 0.5 ML SYRINGE IM ONE (23:05)
[2018-12-18] MEDS: SODIUM CHLORIDE 0.9% 1,000 ML IV SCH (05:56)
[2018-12-18 06:04] LABS: Basophils % 0.7 % (0.0-0.8); Eosinophils # 0.1 10*3/uL (0.0-0.87); Eosinophils % 1.9 % (0.00-10.9); Hematocrit 32.8 VOL% (35.7-47.0); Hemoglobin 10.1 GM/DL (12.0-16.0); Immature Granulocytes % 0.5 %; Immature Granulocytes Absolute 0.02 #; Lymphocytes # 1.7 10*3/uL (1.4-4.0); Lymphocytes % 39.5 % (21.3-54.2); Mean Corpuscular HGB Conc 30.8 GM/DL (32-36); Mean Corpuscular Volume 88.4 FL (87-102); Monocytes % 13.5 % (1.7-12.7); Neutrophils % 43.9 % (38.7-73.9); Platelet Count 193 T/CUMM (130-400); Red Blood Count 3.71 MC/CUMM (3.8-5.5); Red Cell Distribution Width 14.9 % (9.3-17.3); White Blood Count 4.3 T/CUMM (4-12)
[2018-12-18] MEDS ORDERED: LEVOTHYROXINE 125 MCG TABLET PO SCH (06:30)
[2018-12-18 06:31] LABS: Calcium 8.3 MG/DL (8.5-10.1); Osmolality,Calculated 287.8 MOS/KG (273-304)
[2018-12-18 07:50] VITALS: BP 159/87
[2018-12-18] MEDS: DIVALPROEX 250 MG TABLET PO SCH (08:38)
[2018-12-18] MEDS: carvediloL 25 MG TABLET PO SCH (08:38)
[2018-12-18] MEDS: METHEN/SOD PHOS/METH BLUE/HYOS TABLET PO SCH (08:38)
[2018-12-18] MEDS ORDERED: NON-FORMULARY MEDICATION (Fluticasone Furoate-Vilanterol [Breo Ellipta] 1 PUFF) INH SCH (09:00)
[2018-12-18] MEDS ORDERED: PANTOPRAZOLE 40 MG TABLET PO SCH (09:00)
[2018-12-18] MEDS ORDERED: ASPIRIN EC 81 MG TABLET PO SCH (09:00)
[2018-12-18] MEDS ORDERED: OLANZapine 5 MG TABLET PO SCH (09:00)
== END 2018-12-18 11:48 ==
LOC: EDUNIT# → EDBD → N.EDINP 15:46 → N.ED 15:46 → N.EDINP 19:25 → N.5E 19:40
PROVIDERS: ADMIT Emergency Medicine; ATTEND Emergency Medicine

== ENCOUNTER 2020-08-08 14:21 | Observation (INO) ==
[2020-08-08 15:08] LABS: Basophils % 0.6 % (0.0-0.8); Eosinophils # 0.1 10*3/uL (0.0-0.87); Eosinophils % 1.3 % (0.00-10.9); Hematocrit 32.4 VOL% (35.7-47.0); Hemoglobin 9.8 GM/DL (12.0-16.0); Immature Granulocytes % 1.3 %; Immature Granulocytes Absolute 0.08 #; Lymphocytes # 1.1 10*3/uL (1.4-4.0); Lymphocytes % 17.2 % (21.3-54.2); Mean Corpuscular HGB Conc 30.2 GM/DL (32-36); Mean Corpuscular Volume 90.5 FL (87-102); Mean Platelet Volume 10.7 FL (9.6-12.0); Monocytes % 16.6 % (1.7-12.7); Platelet Count 211 T/CUMM (130-400); Red Blood Count 3.58 MC/CUMM (3.8-5.5); Red Cell Distribution Width 16.7 % (9.3-17.3); White Blood Count 6.3 T/CUMM (4-12)
[2020-08-08 15:28] LABS: Lactic Acid 0.9 MMOL/L (0.4-2.0)
[2020-08-08 15:29] LABS: Alanine Aminotransferase < 9 U/L (13-56); Alkaline Phosphatase 58 U/L (45-117); Aspartate Amino Transferase 7 U/L (0-37); Bilirubin,Total < 0.39 MG/DL (0.2-1.0); Blood Urea Nitrogen 30 MG/DL (7-18); Calcium 8.1 MG/DL (8.5-10.1); Carbon Dioxide 26 MMOL/L (21-32); Estimated Glom Filtration Rate 25 ML/MIN; Glucose 85 MG/DL (74-106); Potassium 3.8 MMOL/L (3.5-5.1); Sodium 143 MMOL/L (136-145); Total Protein 6.5 G/DL (6.4-8.2)
[2020-08-08 16:54] LABS: Bacteria,Urine Few /HPF (Few); Bilirubin,Urine Negative (Negative); Blood, Urine Moderate mg/dL (Negative); Glucose,Urine (UA) Negative (Negative); Ketones,Urine Negative (Negative); Nitrite,Urine Negative (Negative); Protein,Urine Negative; RBC,Urine 65 /HPF (0-4); Urine Appearance CLEAR (Clear); Urine Color Straw (Yellow); Urine Specific Gravity 1.004 (1.001-1.035); Urine Urobilinogen < 2.0 EU/DL (0.2-1.0)
[2020-08-08] MEDS ORDERED: DEXTROSE 50% 25 GM/50 ML VIAL IV PRN (18:05)
[2020-08-08] MEDS ORDERED: ONDANSETRON 4 MG/2 ML VIAL IV PRN (18:05)
[2020-08-08] MEDS ORDERED: GLUCAGON 1 MG VIAL IM PRN (18:05)
[2020-08-08] MEDS ORDERED: ACETAMINOPHEN 325 MG TABLET PO PRN (18:05)
[2020-08-08] MEDS ORDERED: LABETALOL 20 MG/4 ML SYRINGE IV PRN (18:11)
[2020-08-08] MEDS ORDERED: DEXTROMETHORPHAN PO PRN (18:14)
[2020-08-08] MEDS ORDERED: CHLORPHENIRAMINE PO PRN (18:14)
[2020-08-08] MEDS ORDERED: POLYETHYLENE GLYCOL POWDER 17 GM PACK PO PRN (18:14)
[2020-08-08] MEDS ORDERED: cloNIDine 0.1 MG TABLET PO PRN (18:14)
[2020-08-08] MEDS ORDERED: [UNRECOGNIZED DRUG - OTHER] PO PRN (18:14)
[2020-08-08 18:30] LABS: Risk Ratio 4.06
[2020-08-08] MEDS ORDERED: cefTRIAXone 1,000 MG in SODIUM CHLORIDE 0.9% 100 ML IV SCH (18:30)
[2020-08-08] MEDS ORDERED: AZITHROMYCIN INJ 500 MG in SODIUM CHLORIDE 0.9% 250 ML IV SCH (18:30)
[2020-08-08] MEDS ORDERED: ALBUTEROL 2.5 MG/3 ML NEB RESP TX PRN (18:51)
[2020-08-08] MEDS ORDERED: ALUMINUM/MAGNES/SIMETH MAX STR 30 ML UDCUP PO PRN (18:53)
[2020-08-08] MEDS ORDERED: TOLTERODINE 2 MG TABLET PO SCH (21:00)
[2020-08-08] MEDS ORDERED: DOCUSATE SODIUM 100 MG CAPSULE PO SCH (21:00)
[2020-08-08] MEDS ORDERED: traZODone 50 MG TABLET PO SCH (21:00)
[2020-08-08] MEDS ORDERED: MELATONIN 3 MG TABLET PO SCH (21:00)
[2020-08-08 21:27] LABS: Eosinophils 2 % (0-10); Lymphocytes 20 % (20-55); Platelet Estimate Normal; Segmented Neutrophils 65 % (50-85); Total Cells Counted 100
[2020-08-08 22:10] LABS: Barbiturates Screen,Urine Negative (Negative); Benzodiazepines Screen,Urine Negative (Negative); Cannabinoid Screen,Urine Negative (Negative); Opiate Screen,Urine Negative (Negative); Phencyclidine Screen,Urine Negative (Negative)
[2020-08-08] MEDS: DIVALPROEX 250 MG TABLET PO SCH (23:54)
[2020-08-08] MEDS: carvediloL 25 MG TABLET PO SCH (23:54)
[2020-08-08] MEDS: FAMOTIDINE 20 MG TABLET PO SCH (23:55)
[2020-08-08] MEDS: APIXABAN 2.5 MG TABLET PO SCH (23:55)
[2020-08-08] MEDS: GABAPENTIN 300 MG CAPSULE PO SCH (23:55)
[2020-08-08] MEDS: SYSTANE BALANCE 0.6% BOTH EYES SCH (23:58)
[2020-08-09 00:43] LABS: Basophils % 0.4 % (0.0-0.8); Eosinophils # 0.1 10*3/uL (0.0-0.87); Eosinophils % 1.4 % (0.00-10.9); Hematocrit 31.5 VOL% (35.7-47.0); Hemoglobin 9.9 GM/DL (12.0-16.0); Immature Granulocytes % 0.8 %; Immature Granulocytes Absolute 0.04 #; Lymphocytes % 19.7 % (21.3-54.2); Mean Corpuscular HGB Conc 31.4 GM/DL (32-36); Mean Corpuscular Volume 88.5 FL (87-102); Mean Platelet Volume 9.9 FL (9.6-12.0); Monocytes % 17.3 % (1.7-12.7); Neutrophils % 60.4 % (38.7-73.9); Platelet Count 189 T/CUMM (130-400); Red Blood Count 3.56 MC/CUMM (3.8-5.5); Red Cell Distribution Width 16.7 % (9.3-17.3); White Blood Count 4.9 T/CUMM (4-12)
[2020-08-09 00:58] LABS: Alanine Aminotransferase < 9 U/L (13-56); Albumin 2.9 G/DL (3.4-5.0); Alkaline Phosphatase 60 U/L (45-117); Aspartate Amino Transferase 6 U/L (0-37); Bilirubin,Total < 0.39 MG/DL (0.2-1.0); Blood Urea Nitrogen 29 MG/DL (7-18); Calcium 8.6 MG/DL (8.5-10.1); Carbon Dioxide 27 MMOL/L (21-32); Estimated Glom Filtration Rate 25 ML/MIN; Glucose 92 MG/DL (74-106); Osmolality,Calculated 295.6 MOS/KG (273-304); Potassium 4.1 MMOL/L (3.5-5.1); Sodium 146 MMOL/L (136-145); Total Protein 6.2 G/DL (6.4-8.2)
[2020-08-09] MEDS ORDERED: LEVOTHYROXINE 125 MCG TABLET PO SCH (06:00)
[2020-08-09] MEDS ORDERED: LORATADINE 10 MG TABLET PO SCH (09:00)
[2020-08-09] MEDS ORDERED: OLANZapine 2.5 MG TABLET PO SCH (09:00)
[2020-08-09] MEDS ORDERED: ASPIRIN 325 MG TABLET PO SCH (09:00)
[2020-08-09] MEDS ORDERED: MONTELUKAST 10 MG TABLET PO SCH (09:00)
[2020-08-09] MEDS ORDERED: FERROUS SULFATE 325 MG TABLET PO SCH (09:00)
[2020-08-09] MEDS ORDERED: FLUTICASONE 50 MCG NASAL SPRAY 16 GM BOTTLE BOTH NARES SCH (09:00)
[2020-08-09] MEDS ORDERED: ASPIRIN EC 81 MG TABLET PO SCH (09:00)
[2020-08-09] MEDS ORDERED: BREO ELLIPTA INH SCH (09:00)
[2020-08-09] MEDS ORDERED: ISOSORBIDE MONONITRATE 30 MG TABLET PO SCH (09:00)
[2020-08-09] MEDS ORDERED: FUROSEMIDE 40 MG TABLET PO SCH (09:00)
[2020-08-09] MEDS: DIVALPROEX 250 MG TABLET PO SCH (10:22)
[2020-08-09] MEDS: APIXABAN 2.5 MG TABLET PO SCH (10:23)
[2020-08-09] MEDS: FAMOTIDINE 20 MG TABLET PO SCH (10:25)
[2020-08-09] MEDS: GABAPENTIN 300 MG CAPSULE PO SCH (10:25)
[2020-08-09] MEDS: carvediloL 25 MG TABLET PO SCH (10:25)
[2020-08-09] MEDS: SYSTANE BALANCE 0.6% BOTH EYES SCH (10:46)
[2020-08-09 11:51] VITALS: BP 104/48
[2020-08-09] MEDS ORDERED: SIMVASTATIN 10 MG TABLET PO SCH (21:00)
== END 2020-08-09 14:51 ==
LOC: EDUNIT# → EDBD → N.EDINP 14:21 → N.ED 14:21 → SUATTDRO 18:05 → N.EDINP 19:59 → N.TELES 20:13
PROVIDERS: ADMIT Internal Medicine; ATTEND Internal Medicine Geriatric Medicine

== ENCOUNTER 2020-11-15 12:00 | Observation (INO) ==
[2020-11-15 14:13] LABS: Basophils % 0.8 % (0.0-0.8); Eosinophils # 0.1 10*3/uL (0.0-0.87); Eosinophils % 2.5 % (0.00-10.9); Hemoglobin 9.5 GM/DL (12.0-16.0); Immature Granulocytes % 0.6 %; Immature Granulocytes Absolute 0.03 #; Lymphocytes # 1.4 10*3/uL (1.4-4.0); Lymphocytes % 28.7 % (21.3-54.2); Mean Corpuscular HGB Conc 30.6 GM/DL (32-36); Mean Corpuscular Volume 84.9 FL (87-102); Mean Platelet Volume 10.6 FL (9.6-12.0); Monocytes % 11.8 % (1.7-12.7); Neutrophils % 55.6 % (38.7-73.9); Platelet Count 196 T/CUMM (130-400); Red Blood Count 3.65 MC/CUMM (3.8-5.5); White Blood Count 4.8 T/CUMM (4-12)
[2020-11-15 14:22] LABS: Bacteria,Urine Occasional /HPF (Few); Bilirubin,Urine Negative (Negative); Blood, Urine Negative (Negative); Glucose,Urine (UA) Negative (Negative); Ketones,Urine Negative (Negative); Mucus,Urine Occasional /LPF (Occasional); Nitrite,Urine Negative (Negative); Protein,Urine Negative; RBC,Urine 1 /HPF (0-4); Urine Appearance CLEAR (Clear); Urine Color Straw (Yellow); Urine Specific Gravity 1.006 (1.001-1.035); Urine Urobilinogen < 2.0 EU/DL (0.2-1.0)
[2020-11-15 14:24] LABS: PT Patient Result 11.4 SECS (10.5-12.0)
[2020-11-15 14:31] LABS: Alanine Aminotransferase < 6 U/L (13-56); Alkaline Phosphatase 46 U/L (45-117); Aspartate Amino Transferase 8 U/L (0-37); Bilirubin,Total < 0.39 MG/DL (0.20-1.00); Blood Urea Nitrogen 30 MG/DL (7-18); Calcium 8.5 MG/DL (8.5-10.1); Carbon Dioxide 29 MMOL/L (21-32); Estimated Glom Filtration Rate 21 ML/MIN; Glucose 103 MG/DL (74-106); Osmolality,Calculated 280.7 MOS/KG (273-304); Potassium 3.9 MMOL/L (3.5-5.1); Sodium 138 MMOL/L (136-145); Total Protein 6.4 G/DL (6.4-8.2)
[2020-11-15 14:36] LABS: Barbiturates Screen,Urine Negative (Negative); Benzodiazepines Screen,Urine Negative (Negative); Cannabinoid Screen,Urine Negative (Negative); Opiate Screen,Urine Negative (Negative); Phencyclidine Screen,Urine Negative (Negative)
[2020-11-15] MEDS ORDERED: ONDANSETRON 4 MG/2 ML VIAL IV PRN (16:30)
[2020-11-15] MEDS ORDERED: GLUCAGON 1 MG VIAL IM PRN (16:30)
[2020-11-15] MEDS ORDERED: DEXTROSE 50% 25 GM/50 ML VIAL IV PRN (16:30)
[2020-11-15] MEDS ORDERED: ENOXAPARIN 40 MG/0.4 ML SYRINGE SUBCUT SCH (16:30)
[2020-11-15] MEDS ORDERED: ACETAMINOPHEN 325 MG TABLET PO PRN (16:30)
[2020-11-15] MEDS ORDERED: LABETALOL 20 MG/4 ML SYRINGE IV PRN (16:34)
[2020-11-15] MEDS ORDERED: ENOXAPARIN 40 MG/0.4 ML SYRINGE ONE (16:47)
[2020-11-15] MEDS ORDERED: CHLORPHENIRAMINE DEXTROMETHORP PO PRN (16:48)
[2020-11-15] MEDS ORDERED: POLYETHYLENE GLYCOL POWDER 17 GM PACK PO PRN (16:48)
[2020-11-15] MEDS ORDERED: ALUMINUM/MAGNES/SIMETH MAX STR 30 ML UDCUP PO PRN (16:48)
[2020-11-15 17:49] LABS: Risk Ratio 5.47; VLDL Cholesterol 33.4 MG/DL
[2020-11-15] MEDS ORDERED: ALBUTEROL 2.5 MG/3 ML NEB RESP TX PRN (19:00)
[2020-11-15 19:50] LABS: Barbiturates Screen,Urine Negative (Negative); Benzodiazepines Screen,Urine Negative (Negative); Cannabinoid Screen,Urine Negative (Negative); Opiate Screen,Urine Negative (Negative); Phencyclidine Screen,Urine Negative (Negative)
[2020-11-15] MEDS ORDERED: TOLTERODINE 2 MG TABLET PO SCH (21:00)
[2020-11-15] MEDS ORDERED: MELATONIN 3 MG TABLET PO SCH (21:00)
[2020-11-15] MEDS ORDERED: traZODone 50 MG TABLET PO SCH (21:00)
[2020-11-15] MEDS ORDERED: DOCUSATE SODIUM 100 MG CAPSULE PO SCH (21:00)
[2020-11-15] MEDS: DIVALPROEX 250 MG TABLET PO SCH (21:11)
[2020-11-15] MEDS: cloNIDine 0.1 MG TABLET PO SCH (21:11)
[2020-11-15] MEDS: GABAPENTIN 300 MG CAPSULE PO SCH (21:13)
[2020-11-15] MEDS: carvediloL 25 MG TABLET PO SCH (21:14)
[2020-11-15] MEDS: APIXABAN 2.5 MG TABLET PO SCH (21:14)
[2020-11-15] MEDS: FAMOTIDINE 20 MG TABLET PO SCH (21:15)
[2020-11-15] MEDS: CARBOXYMETHYLCELLULOSE 1% OPH SOLN BOTH EYES SCH (21:40)
[2020-11-16 04:57] LABS: Eosinophils # 0.1 10*3/uL (0.0-0.87); Eosinophils % 2.9 % (0.00-10.9); Hematocrit 30.5 VOL% (35.7-47.0); Hemoglobin 9.4 GM/DL (12.0-16.0); Immature Granulocytes % 0.7 %; Immature Granulocytes Absolute 0.03 #; Lymphocytes # 1.4 10*3/uL (1.4-4.0); Mean Corpuscular HGB Conc 30.8 GM/DL (32-36); Mean Corpuscular Volume 85.2 FL (87-102); Mean Platelet Volume 10.9 FL (9.6-12.0); Monocytes % 11.2 % (1.7-12.7); Neutrophils % 50.2 % (38.7-73.9); Platelet Count 185 T/CUMM (130-400); Red Blood Count 3.58 MC/CUMM (3.8-5.5); Red Cell Distribution Width 16.9 % (9.3-17.3); White Blood Count 4.2 T/CUMM (4-12)
[2020-11-16 05:26] LABS: Calcium 8.5 MG/DL (8.5-10.1); Osmolality,Calculated 284.4 MOS/KG (273-304); Potassium 3.8 MMOL/L (3.5-5.1)
[2020-11-16] MEDS ORDERED: LEVOTHYROXINE 125 MCG TABLET PO SCH (06:30)
[2020-11-16] MEDS ORDERED: methylPREDNISolone ACETATE 40 MG/1 ML VIAL MISC INJ ONE (07:01)
[2020-11-16] MEDS ORDERED: ASPIRIN EC 81 MG TABLET PO SCH (09:00)
[2020-11-16] MEDS ORDERED: FLUTICASONE 50 MCG NASAL SPRAY 16 GM BOTTLE BOTH NARES SCH (09:00)
[2020-11-16] MEDS ORDERED: MONTELUKAST 10 MG TABLET PO SCH (09:00)
[2020-11-16] MEDS ORDERED: ROSUVASTATIN 20 MG TABLET PO SCH (09:00)
[2020-11-16] MEDS ORDERED: FUROSEMIDE 40 MG TABLET PO SCH (09:00)
[2020-11-16] MEDS ORDERED: FERROUS SULFATE 325 MG TABLET PO SCH (09:00)
[2020-11-16] MEDS ORDERED: ISOSORBIDE MONONITRATE 30 MG TABLET PO SCH (09:00)
[2020-11-16] MEDS ORDERED: LORATADINE 10 MG TABLET PO SCH (09:00)
[2020-11-16] MEDS ORDERED: PANTOPRAZOLE 40 MG TABLET PO SCH (09:00)
[2020-11-16] MEDS ORDERED: OLANZapine 5 MG TABLET PO SCH (09:00)
[2020-11-16] MEDS: carvediloL 25 MG TABLET PO SCH (09:53)
[2020-11-16] MEDS: GABAPENTIN 300 MG CAPSULE PO SCH ×2 (09:53→15:37)
[2020-11-16] MEDS: DIVALPROEX 250 MG TABLET PO SCH (09:53)
[2020-11-16] MEDS: FAMOTIDINE 20 MG TABLET PO SCH (09:54)
[2020-11-16] MEDS: APIXABAN 2.5 MG TABLET PO SCH (09:54)
[2020-11-16] MEDS: cloNIDine 0.1 MG TABLET PO SCH (09:54)
[2020-11-16] MEDS: CARBOXYMETHYLCELLULOSE 1% OPH SOLN BOTH EYES SCH (09:55)
[2020-11-16 16:02] VITALS: BP 122/67
== END 2020-11-16 17:50 ==
LOC: EDBD → EDUNIT# → N.EDINP 12:00 → N.ED 12:00 → N.4E 17:01
PROVIDERS: ADMIT Internal Medicine; ATTEND Internal Medicine

== ENCOUNTER 2020-12-07 12:58 | Inpatient (IN) ==
[2020-12-07] MEDS ORDERED: SODIUM CHLORIDE 0.9% 500 ML IV STA (13:40)
[2020-12-07 14:41] LABS: Basophils % 0.3 % (0.0-0.8); Eosinophils % 0.1 % (0.00-10.9); Hematocrit 31.3 VOL% (35.7-47.0); Hemoglobin 9.7 GM/DL (12.0-16.0); Immature Granulocytes % 2.3 %; Mean Corpuscular Volume 81.9 FL (87-102); Mean Platelet Volume 10.1 FL (9.6-12.0); Monocytes % 13.4 % (1.7-12.7); Neutrophils % 75.9 % (38.7-73.9); Platelet Count 320 T/CUMM (130-400); Red Blood Count 3.82 MC/CUMM (3.8-5.5); Red Cell Distribution Width 16.9 % (9.3-17.3); White Blood Count 12.9 T/CUMM (4-12)
[2020-12-07 14:59] LABS: Alanine Aminotransferase 10 U/L (13-56); Albumin 2.7 G/DL (3.4-5.0); Alkaline Phosphatase 43 U/L (45-117); Aspartate Amino Transferase 11 U/L (0-37); Bilirubin,Total < 0.39 MG/DL (0.20-1.00); Blood Urea Nitrogen 54 MG/DL (7-18); Calcium 9.7 MG/DL (8.5-10.1); Carbon Dioxide 28 MMOL/L (21-32); Estimated Glom Filtration Rate 19 ML/MIN; Glucose 107 MG/DL (74-106); Osmolality,Calculated 287.8 MOS/KG (273-304); Potassium 3.7 MMOL/L (3.5-5.1); Sodium 137 MMOL/L (136-145); Total Protein 7.4 G/DL (6.4-8.2)
[2020-12-07] MEDS ORDERED: GLUCAGON 1 MG VIAL IM PRN (16:00)
[2020-12-07] MEDS ORDERED: ONDANSETRON 4 MG/2 ML VIAL IV PRN (16:00)
[2020-12-07] MEDS ORDERED: DEXTROSE 50% 25 GM/50 ML VIAL IV PRN (16:00)
[2020-12-07] MEDS ORDERED: PIPERACILLIN/TAZOBACTAM 3,375 MG in SODIUM CHLORIDE 0.9% 100 ML IV STA (16:03)
[2020-12-07] MEDS ORDERED: POLYETHYLENE GLYCOL POWDER 17 GM PACK PO PRN (16:07)
[2020-12-07] MEDS ORDERED: PIPERACILLIN/TAZOBACTAM 3,375 MG VIAL IV ONE (16:08)
[2020-12-07] MEDS ORDERED: BISACODYL 5 MG TABLET PO STA (16:09)
[2020-12-07] MEDS ORDERED: SODIUM CHLORIDE 0.9% 100 ML IV ONE (16:10)
[2020-12-07 16:29] LABS: Bacteria,Urine Many /HPF (Few); Bilirubin,Urine Negative (Negative); Blood, Urine Negative (Negative); Glucose,Urine (UA) Negative (Negative); Ketones,Urine Negative (Negative); Nitrite,Urine Positive (Negative); Protein,Urine Negative; RBC,Urine 4 /HPF (0-4); Urine Appearance CLEAR (Clear); Urine Color Yellow (Yellow); Urine Specific Gravity 1.009 (1.001-1.035); Urine Urobilinogen < 2.0 EU/DL (0.2-1.0)
[2020-12-07] MEDS: PANTOPRAZOLE 40 MG TABLET PO SCH (18:16)
[2020-12-07] MEDS: ISOSORBIDE MONONITRATE 30 MG TABLET PO SCH (18:16)
[2020-12-07] MEDS: SODIUM CHLORIDE 0.45% 1,000 ML IV SCH (18:16)
[2020-12-07] MEDS: ALBUTEROL/IPRATROPIUM 3 ML NEB RESP TX SCH (19:45)
[2020-12-07] MEDS ORDERED: MELATONIN 3 MG TABLET PO SCH (21:00)
[2020-12-07] MEDS: carvediloL 25 MG TABLET PO SCH (21:07)
[2020-12-07] MEDS: DIVALPROEX 250 MG TABLET PO SCH (21:07)
[2020-12-07] MEDS: APIXABAN 2.5 MG TABLET PO SCH (21:07)
[2020-12-07] MEDS: GABAPENTIN 300 MG CAPSULE PO SCH (21:08)
[2020-12-07] MEDS: PROPYLENE GLYCOL 0.6% BOTH EYES SCH (21:57)
[2020-12-07] MEDS: PIPERACILLIN/TAZOBACTAM 3,375 MG in SODIUM CHLORIDE 0.9% 100 ML IV SCH (23:49)
[2020-12-08] MEDS: ALBUTEROL/IPRATROPIUM 3 ML NEB RESP TX SCH ×2 (01:04→07:10)
[2020-12-08 05:18] LABS: Basophils % 0.5 % (0.0-0.8); Eosinophils % 0.5 % (0.00-10.9); Hematocrit 24.2 VOL% (35.7-47.0); Immature Granulocytes % 1.9 %; Immature Granulocytes Absolute 0.16 #; Lymphocytes # 1.5 10*3/uL (1.4-4.0); Lymphocytes % 17.5 % (21.3-54.2); Mean Corpuscular HGB Conc 31.4 GM/DL (32-36); Mean Corpuscular Volume 83.2 FL (87-102); Mean Platelet Volume 10.6 FL (9.6-12.0); Monocytes % 18.7 % (1.7-12.7); Neutrophils % 60.9 % (38.7-73.9); Platelet Count 270 T/CUMM (130-400); Red Cell Distribution Width 16.6 % (9.3-17.3)
[2020-12-08 05:31] LABS: Hemoglobin 7.6 GM/DL (12.0-16.0); Red Blood Count 2.91 MC/CUMM (3.8-5.5); White Blood Count 8.3 T/CUMM (4-12)
[2020-12-08 05:39] LABS: Calcium 8.8 MG/DL (8.5-10.1); Osmolality,Calculated 291.4 MOS/KG (273-304); Potassium 3.4 MMOL/L (3.5-5.1)
[2020-12-08 05:41] LABS: Hypochromasia 1+; Lymphocytes 16 % (20-55); Microcytosis 1+; Ovalocytes Slight; Platelet Estimate Adequate; Segmented Neutrophils 68 % (50-85); Total Cells Counted 100
[2020-12-08] MEDS: SODIUM CHLORIDE 0.45% 1,000 ML IV SCH ×2 (06:09→09:00)
[2020-12-08] MEDS ORDERED: LEVOTHYROXINE 125 MCG TABLET PO SCH (07:00)
[2020-12-08] MEDS: POTASSIUM CHLORIDE 20 MEQ TABLET PO PRN ×3 (08:59→12:20)
[2020-12-08] MEDS: ISOSORBIDE MONONITRATE 30 MG TABLET PO SCH (08:59)
[2020-12-08] MEDS: GABAPENTIN 300 MG CAPSULE PO SCH (08:59)
[2020-12-08] MEDS: DIVALPROEX 250 MG TABLET PO SCH (08:59)
[2020-12-08] MEDS: carvediloL 25 MG TABLET PO SCH (08:59)
[2020-12-08] MEDS: PANTOPRAZOLE 40 MG TABLET PO SCH (09:00)
[2020-12-08] MEDS: APIXABAN 2.5 MG TABLET PO SCH (09:00)
[2020-12-08] MEDS ORDERED: OLANZapine 2.5 MG TABLET PO SCH (09:00)
[2020-12-08] MEDS ORDERED: ROSUVASTATIN 20 MG TABLET PO SCH (09:00)
[2020-12-08 10:12] LABS: Hematocrit 25.9 VOL% (35.7-47.0)
[2020-12-08 10:13] LABS: Basophils % 0.4 % (0.0-0.8); Eosinophils # 0.1 10*3/uL (0.0-0.87); Eosinophils % 0.5 % (0.00-10.9); Hematocrit 26.2 VOL% (35.7-47.0); Immature Granulocytes % 1.5 %; Immature Granulocytes Absolute 0.14 #; Lymphocytes # 1.2 10*3/uL (1.4-4.0); Lymphocytes % 13.1 % (21.3-54.2); Mean Corpuscular HGB Conc 30.5 GM/DL (32-36); Mean Corpuscular Volume 82.9 FL (87-102); Mean Platelet Volume 9.3 FL (9.6-12.0); Monocytes % 17.8 % (1.7-12.7); Neutrophils % 66.7 % (38.7-73.9); Platelet Count 256 T/CUMM (130-400); Red Blood Count 3.16 MC/CUMM (3.8-5.5); Red Cell Distribution Width 16.6 % (9.3-17.3); White Blood Count 9.1 T/CUMM (4-12)
[2020-12-08 10:44] LABS: % Iron Saturation 9.5 % (18-50); Ferritin 144.7 ng/mL (8-252)
[2020-12-08 10:44] LABS: Hypochromasia 1+; Lymphocytes 9 % (20-55); Microcytosis 1+; Ovalocytes Slight; Platelet Estimate Adequate; Segmented Neutrophils 76 % (50-85); Total Cells Counted 100
[2020-12-08] MEDS: PROPYLENE GLYCOL 0.6% BOTH EYES SCH (10:45)
[2020-12-08] MEDS: PIPERACILLIN/TAZOBACTAM 3,375 MG in SODIUM CHLORIDE 0.9% 100 ML IV SCH (10:45)
[2020-12-08 11:00] LABS: Folate 6.71 NG/ML (5.38-24.0); Vitamin B12 354 PG/ML (211-911)
[2020-12-08 11:14] LABS: Sedimentation Rate-Westergren 125 MM/HR (0-30)
[2020-12-08 11:47] VITALS: BP 149/74
[2020-12-08] MEDS ORDERED: PIPERACILLIN/TAZOBACTAM 3,375 MG in SODIUM CHLORIDE 0.9% 100 ML IV SCH (12:00)
== END 2020-12-08 13:11 | DRG 193 ==
LOC: N.ED 12:58 → N.EDINP 15:47 → SUATTDRO 15:47 → N.3E 16:16
PROVIDERS: ADMIT Internal Medicine; ATTEND Internal Medicine